=== PATIENT | female | born 1970 | race Caucasian/White ===

== ENCOUNTER 2016-11-16 12:15 | Emergency (ER) ==
[2016-11-16] MEDS ORDERED: TORADOL IM STA (12:26)
[2016-11-16 12:27] VITALS: BP 134/88; TEMP 97.1; BMI 46.1
--- NOTE | 2016-11-16 12:29 | ED.PDOC ---
General ED Provider: Dr. BRISEIDA LEÓN Chief Complaint: Foot Pain/Injury Stated Complaint: twisted injury to right foot, painful to walk. Time Seen by Physician: 12:27 Mode of Arrival: Wheelchair Information Source: Patient Primary Care Provider: STEFANIE NARAYANAN Nursing and Triage Documentation Reviewed and Agree: Yes Musculoskeletal Complaint Exam - Ankle/Foot Complaint/Exam Location of Injury: Reports: Right, Foot Mechanism of Injury: Reports: Trauma Symptoms Are: Reports: Still present Onset of Pain: Reports: Immediate Initial Severity: Moderate Current Severity: Severe Location: Reports: Discrete Character: Reports: Aching, Throbbing Alleviating: Reports: None Aggravating: Reports: Movement, Weight bearing Able to Bear Weight: No Associated Signs and Symptoms: Reports: Swelling. Denies: Redness, Bruising, Fever, Weakness, Numbness, Tingling Gout Risk Factors: Reports: None Related Surgical History: Reports: None Lower Extremity Findings: Present: Swelling, Tenderness. Absent: Ecchymosis, Abnormal contour, Rotation Tenderness: Present: Midfoot, Metatarsals Limited Range of Motion: Present: Inversion, Eversion Differential Diagnosis: Closed Fracture, Sprain Review of Systems - Review Of Systems Constitutional: Reports: No symptoms Eyes: Reports: No symptoms Ears, Nose, Mouth, Throat: Reports: No symptoms Respiratory: Reports: No symptoms Cardiac: Reports: No symptoms GI: Reports: No symptoms : Reports: No symptoms Musculoskeletal: Reports: Joint pain, Joint swelling Skin: Reports: No symptoms Neurological: Reports: No symptoms Endocrine: Reports: No symptoms Hematologic/Lymphatic: Reports: No symptoms All Other Systems: Reviewed and Negative Past Medical History - Past Medical History Previously Healthy: No Endocrine: Reports: None Cardiovascular: Reports: Hypertension Respiratory: Reports: None Hematological: Reports: None Gastrointestinal: Reports: None Genitourinary: Reports: None Neuro/Psych: Reports: Anxiety, Depression Musculoskeletal: Reports: Back Pain (buldging disk. ), Joint Pain Cancer: Reports: None Last Menstrual Period: none Other Pertinent Past Medical History: Obesity - Surgical History General Surgical History: Reports: Hysterectomy, , Appendectomy. Denies: Back Surgery - Family History Family History: Reports: Hypertension - Social History Smoking Status: Former smoker Hx Substance Use: Yes (ALCOHOL AND MARIJUANA IN PAST) Alcohol Screening: None - Immunizations Influenza Vaccine within 12 Months: No Pneumococcal Vaccine up to Date: No Physical Exam - Physical Exam Appearance: Well-appearing, Well-nourished, Obese Pain Distress: Moderate Eyes: MIKALA, EOMI, Conjunctiva clear ENT: Ears normal, Nose normal, Oropharynx normal Respiratory: Airway patent, Breath sounds clear, Breath sounds equal, Respirations nonlabored Cardiovascular: RRR, Pulses normal, No rub, No murmur GI/: Soft, Nontender, No masses, Bowel sounds normal, No Organomegaly Musculoskeletal: No edema, No calf tenderness, Limited ROM, Limited strength Skin: Warm, Dry, Normal color Neurological: Sensation intact, Motor intact, Reflexes intact, Cranial nerves intact, Alert, Oriented Psychiatric: Affect appropriate, Mood appropriate Interpretation - Radiology Interpretation Radiology Interpretation By: ED Physician Radiology Results: Negative Critical Care Note - Critical Care Note Total Time (mins): 0 Course - Course Orders, Labs, Meds: Orders Category Date Time Status Ketorolac Tromethamine [Toradol] MEDS 11/16/16 12:26 Discontinued 60 mg IM ONCE STA FOOT, RIGHT 3 VIEWS Stat RADS 11/16/16 12:26 Taken Medications Discontinued Medications Generic Name Dose Route Start Last Admin Trade Name Freq PRN Reason Stop Dose Admin Ketorolac Tromethamine 60 mg 11/16/16 12:26 11/16/16 12:36 Toradol IM 11/16/16 12:27 60 mg ONCE STA Administration Vital Signs: Temp Pulse Resp BP Pulse Ox 11/16/16 12:16 97.1 F L 86 18 134/88 94 L Departure - Departure Time of Disposition: 13:01 Disposition: HOME SELF-CARE Discharge Problem: Foot sprain Qualifiers: Encounter type: initial encounter Laterality: right Qualifier Code: (S93.601A) Unspecified sprain of right foot, initial encounter Instructions: Foot Sprain (ED) Condition: Stable Pt referred to PMD for follow-up: Yes Additional Instructions: rest hot or cold pack Prescriptions: Hydrocodone/Acetaminophen [[place] 5-325 Tablet] 1 tab PO TID PRN #12 tablet PRN Reason: PAIN Allergies/Adverse Reactions: Allergies aspirin Adverse Reaction (Verified 11/16/16 12:22) Penicillins Adverse Reaction (Verified 11/16/16 12:22) Home Medications: Ambulatory Orders Hydrocodone/Acetaminophen [[place] 5-325 Tablet] 1 tab PO TID PRN #12 tablet 11/16 Disposition Discussed With: Patient, Family
--- NOTE | 2016-11-16 16:18 | DI ---
EXAM:Three-view right foot COMPARISON: None HISTORY: Trauma and pain FINDINGS: There is no acute fracture or dislocation. Alignment is anatomic. Joint spaces are well preserved. There is a calcaneal Achilles spur. Soft tissues are unremarkable. No unexpected radio-o paque foreign bodies. IMPRESSION: No acute osseous abnormality.
== END 2016-11-16 13:16 | disposition home or self-care (01) ==
LOC: ED 12:15
DX: S93.601A Unspecified sprain of right foot, initial encounter (principal); X50.1XXA Overexertion from prolonged static or awkward postures, initial encounter
CPT/HCPCS: 96372; 99282

== ENCOUNTER 2016-11-19 11:29 | Outpatient (CLI) ==
--- NOTE | 2016-11-19 14:57 | MRI ---
EXAM: MRI right knee without contrast. HISTORY: Right knee pain. Torn meniscus removed. Low back pain.. TECHNIQUE: Using a local extremity coil on a high field strength magnet multiplanar multisequence m agnet resonance imaging performed of the right knee without intravenous or intra-articular gadoliniu m contrast. COMPARISON: Two-view plain film examination right knee 08/08/2009. FINDINGS: Within the medial compartment question partial meniscectomy change involving the posterio r horn and body medial meniscus. No discrete surfacing medial meniscal tear identified. The medial compartment cartilage relatively congruent without focal underlying subchondral edema. Within the lateral compartment lateral meniscus is intact without discrete surfacing meniscal tear. The lateral compartment cartilage congruent without underlying subchondral edema. Within the patellofemoral compartment the patella seated with intact patellar attachment of the medi al and lateral patellar retinaculum.. Large 14 mm area of chondrosis with cartilage ulceration over the median ridge extending over the lateral facet with underlying subchondral edema/cyst formation. The trochlear groove cartilage relatively congruent without underlying subchondral edema. Trace right knee effusion. No osteochondral loose bodies. Intact anterior and posterior cruciate l igament fibers. The extensor mechanism is intact. The medial collateral ligament as well as latera l collateral ligament complex and posterolateral corner intact.. IMPRESSION: Question partial meniscectomy change involving the posterior horn body medial meniscus. No discrete surfacing medial meniscal tear identified. 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 Trace right knee effusion. Intact cruciate and collateral ligaments. Recommendation is obtainment and correlation with recent plain film radiographs of the right knee to include tangential view as none are available for comparison at the time of this dictation.
--- NOTE | 2016-11-20 08:23 | MRI ---
EXAM: MRI lumbar spine without IV contrast. DATE: 19 November 2016. HISTORY: Low back pain. TECHNIQUE: Sagittal and axial T1W and T2W sequences of the lumbar spine along with sagittal IR and coronal T2W sequences were obtained using 1.5 Alejandra magnet. No IV contrast. COMPARISON: MRI L-spine [address] abdomen/pelvis 16 July 2015 FINDINGS: There are four classic [id number] lumbar vertebra (L2 through L5). At the thoracolu mbar junction, there is a transitional vertebra with either hypoplastic ribs or unusual articulation s of the transverse processes. For the purposes of this dictation and in keeping with previous dict ations, this transitional vertebra is referred to as L1. The alignment of the lumbar spine is normal. No acute fracture, subluxation, osseous malignancy, or pars interarticularis defect is identified. Lumbar vertebra are normal in height. Bone marrow sig nal is normal. T2W/T1W bright, 8 x 6.2 x 12 mm focus in the right side of the L1 body is likely a b enign hemangioma. Lumbar intervertebral discs are normal in height. No sacral fracture or stress r eaction is identified. SI joints are unremarkable. Conus medullaris terminates at L1-2. Visible s ricardo cord is normal. No retroperitoneal lymphadenopathy, paraspinal mass, or aortic aneurysm is detected. Paraspinal mus culature is symmetric bilaterally. Visible portions of the liver, spleen, right adrenal gland and k idneys reveal no malignancy. A 4.6 mm nodular focus at the medial limb left adrenal gland and 5.3 m m questionable nodule at the left adrenal jacquelin are seen on axial images. CBD is 6 mm diameter at th e pancreatic head level is within normal limits given the patients previous cholecystectomy. No def initive choledocholithiasis. A 4.4 x 6 mm questionable fold vs polyp vs prominent ampulla Vater is observed on the limited images through the C-loop duodenum. Segmental analysis: T12-L1: Normal. L1-2: Normal L2-3: Normal. L3-4: Normal. L4-5: Minor bilateral facet arthropathy and tiny effusions. No disc protrusion/bulge or central st enosis. L5-S1: Mild bilateral facet arthropathy causes minimal right and mild left foraminal encroachment. No disc protrusions/bulge or central canal stenosis. IMPRESSIONS: 1. L-spine minor DDD and mild facet disease. 2. No lumbar spine central canal stenosis. 3. Minimal right and mild left foraminal narrowing at L5-S1. 4. Left adrenal artifacts vs small lesions / adenomas. 5. C-loop duodenum artifact vs polyp vs prominent ampulla Vater. If symptoms warrant further evalu ation, upper GI examination or direct visualization could be considered.
== END 2016-11-19 11:30 | disposition home or self-care (01) ==
LOC: RAD 11:29
PROVIDERS: ATTEND Physician Assistant Medical
DX: M54.5 Low back pain (principal); M25.561 Pain in right knee

== ENCOUNTER 2016-12-30 19:45 | Emergency (ER) ==
[2016-12-30 19:49] VITALS: BP 136/90; TEMP 98.5; BMI 43.6
--- NOTE | 2016-12-30 20:24 | ED.PDOC ---
General ED Provider: Dr. YASH PITT-ER Chief Complaint: Foot Pain/Injury Stated Complaint: my foot hurts Time Seen by Physician: 19:50 Mode of Arrival: Wheelchair Information Source: Patient Exam Limitations: No limitations Primary Care Provider: STEFANIE NARAYANAN Nursing and Triage Documentation Reviewed and Agree: Yes Musculoskeletal Complaint Exam - Ankle/Foot Complaint/Exam Location of Injury: Reports: Left, Foot Mechanism of Injury: Reports: No known trauma Onset/Duration: 3 hrs Symptoms Are: Reports: Still present Onset of Pain: Reports: Immediate Initial Severity: Mild Current Severity: Mild Location: Reports: Discrete Character: Reports: Throbbing, Stiffness Alleviating: Reports: None Aggravating: Reports: Movement, Weight bearing, Prolonged standing Able to Bear Weight: No Associated Signs and Symptoms: Denies: Swelling, Redness, Bruising, Fever, Weakness, Numbness, Tingling Gout Risk Factors: Reports: >40 years old Lower Extremity Findings: Present: Tenderness Achilles Tendon Abnormality: No Tenderness: Present: Midfoot Limited Range of Motion: Present: Inversion, Eversion Differential Diagnosis: Closed Fracture, Sprain, Strain Review of Systems - Review Of Systems Constitutional: Reports: No symptoms Eyes: Reports: No symptoms Ears, Nose, Mouth, Throat: Reports: No symptoms Respiratory: Reports: No symptoms Cardiac: Reports: No symptoms GI: Reports: No symptoms : Reports: No symptoms Musculoskeletal: Reports: Joint pain, Muscle pain Skin: Reports: No symptoms Neurological: Reports: No symptoms Endocrine: Reports: No symptoms Hematologic/Lymphatic: Reports: No symptoms All Other Systems: Reviewed and Negative Past Medical History - Past Medical History Previously Healthy: No Endocrine: Reports: None Cardiovascular: Reports: Hypertension Respiratory: Reports: None Hematological: Reports: None Gastrointestinal: Reports: None Genitourinary: Reports: None Neuro/Psych: Reports: Anxiety, Depression Musculoskeletal: Reports: Back Pain (buldging disk. ), Joint Pain Cancer: Reports: None Last Menstrual Period: none Other Pertinent Past Medical History: Obesity - Surgical History General Surgical History: Reports: Hysterectomy, , Appendectomy. Denies: Back Surgery - Family History Family History: Reports: Hypertension - Social History Smoking Status: Former smoker Hx Substance Use: Yes (ALCOHOL AND MARIJUANA IN PAST) Alcohol Screening: None Lives: With family - Immunizations Influenza Vaccine within 12 Months: No Pneumococcal Vaccine up to Date: No Physical Exam - Physical Exam Appearance: Well-appearing, No pain distress, Well-nourished Pain Distress: Mild Eyes: MIKALA ENT: Ears normal, Nose normal, Oropharynx normal Neck: Supple Respiratory: Airway patent Cardiovascular: RRR GI/: Soft, Nontender, No masses, Bowel sounds normal, No Organomegaly Musculoskeletal: Limited ROM Skin: Warm Neurological: Sensation intact Psychiatric: Affect appropriate, Mood appropriate Interpretation - Radiology Interpretation Radiology Interpretation By: Radiologist Radiology Results: Negative Exam Interpreted: CT Scan Critical Care Note - Critical Care Note Total Time (mins): 0 Course - Course Orders, Labs, Meds: Orders Category Date Time Status CRUTCHES [ED CRUTCHES] .ONCE EMERGENCY 12/30/16 20:40 Ordered ED ALEXIA WRAP .ONCE EMERGENCY 12/30/16 20:40 Ordered ED SPLINT APPLICATION .ONCE EMERGENCY 12/30/16 20:40 Ordered Hydrocodone Bit/Acetaminophen [[place] 5-325] MEDS 12/30/16 20:40 Stat 1 tab PO ONCE STA CT FOOT LEFT WITHOUT CONTRAST Stat RADS 12/30/16 19:53 Completed Vital Signs: Temp Pulse Resp BP Pulse Ox 12/30/16 19:45 98.5 F 92 H 20 136/90 98 Departure - Departure Time of Disposition: 20:41 Disposition: HOME SELF-CARE Discharge Problem: Foot pain, left Instructions: Foot Fracture in Adults (ED) Condition: Good Pt referred to PMD for follow-up: Yes Additional Instructions: noweightbearing--use crutches --norco 5mg q 6hrs prn pain #15--f/u with pcp and consider referral to ortho Allergies/Adverse Reactions: Allergies aspirin Adverse Reaction (Verified 12/30/16 19:49) Penicillins Adverse Reaction (Verified 12/30/16 19:49) Home Medications: Ambulatory Orders Hydrochlorothiazide 25 mg PO DAILY 12/30/16 Phentermine HCl 37.5 mg PO DAILY 12/30/16 Disposition Discussed With: Patient
--- NOTE | 2016-12-30 20:37 | CT ---
Exam: CT left foot without contrast. Clinical indication: Left foot pain with history of osteochondral lesion. TECHNIQUE: Axial unenhanced CT images through the left foot were obtained followed by coronal and s agittal reformats. There are no prior studies available for comparison. Findings: The visualized portions of the distal left tibia and fibula are intact. There is no left ankle effusion. On the medial corner of the left talar dome there are multiple subchondral cystic changes consistent with a prior osteochondral defect. The remainder of the talus is intact. The calcaneus is intact. The subtalar joints are unremarkable. The navicular, cuboid, and cuneiform bones are intact. The metatarsals are intact. The bones of th e toes are intact. The joints of the foot are unremarkable other than the osteochondral defect mentioned above. The soft tissues are unremarkable. Impression: 1. Multiple small subchondral cysts on the medial corner of the left talar dome, consistent with a prior osteochondral defect. 2. Otherwise unremarkable CT of the left foot.
[2016-12-30] MEDS ORDERED: NORCO 5-325 PO STA (20:40)
== END 2016-12-30 20:54 | disposition home or self-care (01) ==
LOC: ED 19:45
DX: M79.672 Pain in left foot (principal)
CPT/HCPCS: 99282

== ENCOUNTER 2017-02-09 11:33 | Inpatient (IN) ==
[2017-02-09 11:37] VITALS: BMI 41.0
--- NOTE | 2017-02-09 12:04 | ED.PDOC ---
General ED Provider: Dr. SANTO ROBLEDO JR Chief Complaint: Chest Pain Stated Complaint: pain left chest began Thursday during services at [facility] comes and goes began at left ant chest and rediated down left arm with numbness to arm nausea light headed called PMD today; through to her back and down left arm nothing better or worse. took antacids burping yesterday. denies shortness of breath but nausea ]6 years ago similar pain negative cardiac workup thursday had an mri done with dye[End]follow up of back MRI, saw Dr Urbina Time Seen by Physician: 12:03 Mode of Arrival: Walk-In Information Source: Patient Exam Limitations: No limitations Primary Care Provider: STEFANIE NARAYANAN Nursing and Triage Documentation Reviewed and Agree: No Review of Systems - Review Of Systems Constitutional: Reports: Malaise Eyes: Reports: No symptoms Ears, Nose, Mouth, Throat: Reports: No symptoms Respiratory: Reports: No symptoms Cardiac: Reports: No symptoms GI: Reports: Nausea : Reports: No symptoms Musculoskeletal: Reports: Muscle pain (ant chest and lateral left upper arm) Skin: Reports: No symptoms Neurological: Reports: No symptoms Endocrine: Reports: No symptoms Hematologic/Lymphatic: Reports: Other All Other Systems: Other Past Medical History - Past Medical History Previously Healthy: No Endocrine: Reports: None Cardiovascular: Reports: Hypertension Respiratory: Reports: None Hematological: Reports: None Gastrointestinal: Reports: None, Pancreatitis (?) Genitourinary: Reports: None Neuro/Psych: Reports: Anxiety, Depression Musculoskeletal: Reports: Back Pain (buldging disk. ), Joint Pain Cancer: Reports: None Last Menstrual Period: n/a Other Pertinent Past Medical History: Obesity - Surgical History General Surgical History: Reports: Hysterectomy, , Appendectomy, Cholecystectomy (note recent MRI shows small stone or polyp in bile duct(MRI of back showed adrenal left nodules and polyp in ampula vater). Denies: Back Surgery - Family History Family History: Reports: Heart (father in his 60s past hx cabg diabetes copd; MGF with CHF ), Hypertension (mother with HT and angina), Cancer - Social History Smoking Status: Former smoker (quit 3 years ago) Hx Substance Use: Yes (ALCOHOL AND MARIJUANA IN PAST) Alcohol Screening: None - Immunizations Influenza Vaccine within 12 Months: No Pneumococcal Vaccine up to Date: No Physical Exam - Physical Exam Appearance: Well-appearing, Obese Pain Distress: Moderate Eyes: MIKALA, EOMI, Conjunctiva clear ENT: Ears normal (note excess cerumen), Nose normal, Oropharynx normal Neck: Supple Respiratory: Airway patent, Breath sounds clear, Breath sounds equal, Respirations nonlabored Cardiovascular: RRR, Pulses normal, No rub, No murmur (tender ant chest over left pectoral muscle and left posterior upper arm) GI/: Soft, Nontender, No masses, Bowel sounds normal, No Organomegaly Musculoskeletal: Normal strength, ROM intact, No edema, No calf tenderness ( tender left pectoral and left upper arm) Skin: Warm, Dry, Normal color Neurological: Sensation intact, Motor intact, Reflexes intact, Cranial nerves intact, Alert, Oriented Psychiatric: Affect appropriate, Mood appropriate Interpretation - Radiology Interpretation Radiology Interpretation By: Radiologist Radiology Results: Negative Exam Interpreted: CXR - EKG Interpretation Time of EKG #1: 12:14 Rate: Normal Rhythm: Sinus ST Segment: Normal Re-Evaluation - Re-Evaluation Time of Re-Evaluation: 12:13 (MRI 29march nodules left adrenal gland &?mass ampulla vater) Critical Care Note - Critical Care Note Total Time (mins): 10 Course - Course Hematology/Chemistry: 02/09/17 12:00 02/09/17 12:00 Orders, Labs, Meds: Lab Review 02/09/17 12:00 WBC 5.81 RBC 4.74 Hgb 13.4 Hct 41.0 MCV 86.5 MCH 28.3 MCHC 32.7 RDW Coeff of Cuauhtemoc 12.9 Plt Count 231 Immature Gran % (Auto) 0.3 Neut % (Auto) 53.8 Lymph % (Auto) 34.4 Hardin % (Auto) 7.2 Eos % (Auto) 3.8 Baso % (Auto) 0.5 Immature Gran # (Auto) 0.0 Neut # 3.1 Lymph # 2.0 Hardin # 0.4 Eos # 0.2 Baso # 0.0 D-Dimer (Manual) 355.80 Sodium 142 Potassium 3.9 Chloride 102 Carbon Dioxide 30 Anion Gap 13.9 BUN 9 Creatinine 0.80 Estimated GFR (MDRD) 78.00 BUN/Creatinine Ratio 11.25 Glucose 94 Calcium 9.7 Total Bilirubin 0.42 AST 19 ALT 18 Alkaline Phosphatase 68 Total Creatine Kinase 53 Troponin I < 0.0100 B-Natriuretic Peptide < 10 Total Protein 7.1 Albumin 3.8 Globulin 3.3 Albumin/Globulin Ratio 1.15 Triglycerides 75 Cholesterol 133 LDL Cholesterol, Calc 67 VLDL Cholesterol 15 HDL Cholesterol 51 Cholesterol/HDL Ratio 2.6 L TSH 1.058 Free T4 1.04 Orders Category Date Time Status PLACE PATIENT OBSERVATION .TO [facility] (MONITORED BED ADMISSION 02/09/17 13: 41 Active ) ECHOCARDIOGRAM 2D-M MODE Routine CARDIO 02/09/17 13:39 Ordered EKG-(ED ONLY) Stat CARDIO 02/09/17 11:53 Completed EKG-(IP & OP ONLY) DAILY CARDIO 02/10/17 06:00 Ordered EKG-(IP & OP ONLY) DAILY CARDIO 02/11/17 06:00 Ordered EKG-(IP & OP ONLY) DAILY CARDIO 02/12/17 06:00 Ordered STRESS ECHO Routine CARDIO 02/09/17 13:39 Ordered ACTIVITY .Early Mobilization for VTE Prevention CARE 02/09/17 13:43 Completed INTAKE & OUTPUT Q8HR CARE 02/09/17 13:41 Active INTAKE & OUTPUT Q8HR CARE 02/09/17 13:43 Completed NPO REMINDER: LAB TEST ONCE CARE 02/09/17 13:35 Active TELEMETRY MONITORING TELE CARE 02/09/17 13:42 Active VITAL SIGNS Q4HR CARE 02/09/17 13:43 Completed CARDIAC DIET DIETARY 02/09/17 Dinner Ordered B-TYPE NATRIURETIC PEPTIDE Stat LAB 02/09/17 12:00 Completed CBC W/ AUTO DIFF DAILY@0600 LAB 02/10/17 06:00 Ordered CBC W/ AUTO DIFF DAILY@0600 LAB 02/11/17 06:00 Ordered CBC W/ AUTO DIFF DAILY@0600 LAB 02/12/17 06:00 Ordered CBC W/ AUTO DIFF DAILY@0600 LAB 02/13/17 06:00 Ordered CBC W/ AUTO DIFF DAILY@0600 LAB 02/14/17 06:00 Ordered CBC W/ AUTO DIFF DAILY@0600 LAB 02/15/17 06:00 Ordered CBC W/ AUTO DIFF DAILY@0600 LAB 02/16/17 06:00 Ordered CBC W/ AUTO DIFF DAILY@0600 LAB 02/17/17 06:00 Ordered CBC W/ AUTO DIFF DAILY@0600 LAB 02/18/17 06:00 Ordered CBC W/ AUTO DIFF DAILY@0600 LAB 02/19/17 06:00 Ordered CBC W/ AUTO DIFF DAILY@0600 LAB 02/20/17 06:00 Ordered CBC W/ AUTO DIFF DAILY@0600 LAB 02/21/17 06:00 Ordered CBC W/ AUTO DIFF DAILY@0600 LAB 02/22/17 06:00 Ordered CBC W/ AUTO DIFF DAILY@0600 LAB 02/23/17 06:00 Ordered CBC W/ AUTO DIFF DAILY@0600 LAB 02/24/17 06:00 Ordered CBC W/ AUTO DIFF DAILY@0600 LAB 02/25/17 06:00 Ordered CBC W/ AUTO DIFF DAILY@0600 LAB 02/26/17 06:00 Ordered CBC W/ AUTO DIFF DAILY@0600 LAB 02/27/17 06:00 Ordered CBC W/ AUTO DIFF DAILY@0600 LAB 02/28/17 06:00 Ordered CBC W/ AUTO DIFF DAILY@0600 LAB 03/01/17 06:00 Ordered CBC W/ AUTO DIFF Stat LAB 02/09/17 12:00 Completed COMPREHENSIVE METABOLIC PANEL DAILY@0600 LAB 02/10/17 06:00 Ordered COMPREHENSIVE METABOLIC PANEL DAILY@0600 LAB 02/11/17 06:00 Ordered COMPREHENSIVE METABOLIC PANEL DAILY@0600 LAB 02/12/17 06:00 Ordered COMPREHENSIVE METABOLIC PANEL DAILY@0600 LAB 02/13/17 06:00 Ordered COMPREHENSIVE METABOLIC PANEL DAILY@0600 LAB 02/14/17 06:00 Ordered COMPREHENSIVE METABOLIC PANEL DAILY@0600 LAB 02/15/17 06:00 Ordered COMPREHENSIVE METABOLIC PANEL DAILY@0600 LAB 02/16/17 06:00 Ordered COMPREHENSIVE METABOLIC PANEL DAILY@0600 LAB 02/17/17 06:00 Ordered COMPREHENSIVE METABOLIC PANEL DAILY@0600 LAB 02/18/17 06:00 Ordered COMPREHENSIVE METABOLIC PANEL DAILY@0600 LAB 02/19/17 06:00 Ordered COMPREHENSIVE METABOLIC PANEL DAILY@0600 LAB 02/20/17 06:00 Ordered COMPREHENSIVE METABOLIC PANEL DAILY@0600 LAB 02/21/17 06:00 Ordered COMPREHENSIVE METABOLIC PANEL DAILY@0600 LAB 02/22/17 06:00 Ordered COMPREHENSIVE METABOLIC PANEL DAILY@0600 LAB 02/23/17 06:00 Ordered COMPREHENSIVE METABOLIC PANEL DAILY@0600 LAB 02/24/17 06:00 Ordered COMPREHENSIVE METABOLIC PANEL DAILY@0600 LAB 02/25/17 06:00 Ordered COMPREHENSIVE METABOLIC PANEL DAILY@0600 LAB 02/26/17 06:00 Ordered COMPREHENSIVE METABOLIC PANEL DAILY@0600 LAB 02/27/17 06:00 Ordered COMPREHENSIVE METABOLIC PANEL DAILY@0600 LAB 02/28/17 06:00 Ordered COMPREHENSIVE METABOLIC PANEL DAILY@0600 LAB 03/01/17 06:00 Ordered COMPREHENSIVE METABOLIC PANEL Stat LAB 02/09/17 12:00 Completed CREATINE KINASE Q8H LAB 02/09/17 19:45 Ordered CREATINE KINASE Q8H LAB 02/10/17 03:45 Ordered CREATINE KINASE Stat LAB 02/09/17 12:00 Completed D-DIMER Stat LAB 02/09/17 12:00 Completed FREE T4 (FREE THYROXINE) Routine LAB 02/09/17 12:00 Completed LIPID PANEL Routine LAB 02/09/17 12:00 Completed THYROID STIMULATING HORMONE Routine LAB 02/09/17 12:00 Completed TROPONIN I Q8H LAB 02/09/17 19:45 Ordered TROPONIN I Q8H LAB 02/10/17 03:45 Ordered TROPONIN I Stat LAB 02/09/17 12:00 Completed Hydrochlorothiazide [Hydrochlorothiazide] MEDS 02/10/17 09:00 Active 25 mg PO DAILY Sucralfate [Carafate] MEDS 02/09/17 17:00 Active 1 gm PO ACHS RESUSCITATION STATUS Routine OTHERS 02/09/17 13:41 Ordered CHEST, 1V AP ONLY Stat RADS 02/09/17 11:53 Completed Medications Generic Name Dose Route Start Last Admin Trade Name Freq PRN Reason Stop Dose Admin Dexamethasone Sodium Phosphate 4 mg 02/09/17 16:18 Decadron 4 Mg/Ml Sdv IM 02/09/17 16:19 ONCE STA Ketorolac Tromethamine 30 mg 02/09/17 16:19 Toradol IVP 02/09/17 16:20 ONCE STA Non-Formulary Medication 25 mg 02/10/17 09:00 Hydrochlorothiazide [Hydrochlorothiazide] PO DAILY JESSE Non-Formulary Medication 1 gm 02/09/17 17:00 Sucralfate [Carafate] PO ACHS JESSE Vital Signs: Temp Pulse Resp BP Pulse Ox 02/09/17 11:34 96.3 F L 82 16 133/86 97 ANSHU Risk Score ANSHU Risk Score: Risk Score Odds of by 30D 0 0.1 (0.1-0.2) 1 0.3 (0.2-0.3) 2 0.4 (0.3-0.5) 3 0.7 (0.6-0.9) 4 1.2 (1.0-1.5) 5 2.2 (1.9-2.6) 6 3.0 (2.5-3.6) 7 4.8 (3.8-6.1) Departure - Departure Time of Disposition: 14:00 Disposition: PLACED OBSERVATION Discharge Problem: Chest pain Condition: Good Pt referred to PMD for follow-up: No (hospitalist) Allergies/Adverse Reactions: Allergies aspirin Adverse Reaction (Verified 02/09/17 11:37) Penicillins Adverse Reaction (Verified 02/09/17 11:37) Home Medications: Ambulatory Orders Hydrochlorothiazide 25 mg PO DAILY 12/30/16 Phentermine HCl 37.5 mg PO DAILY 12/30/16 Sucralfate [Carafate] 1 gm PO ACHS 02/09/17
[2017-02-09 12:08] LABS: BASOPHILS % (AUTO) 0.5 % (0.0-3.0); EOSINOPHILS # (AUTO) 0.2 K/ul (0.0-0.7); EOSINOPHILS % (AUTO) 3.8 % (0.0-7.0); HEMOGLOBIN 13.4 g/dl (12.0-16.0); IMMATURE GRANULOCYTE % (AUTO) 0.3 % (0.0-5.0); LYMPHOCYTES % (AUTO) 34.4 (10.0-50.0); MEAN CORPUSCULAR HEMOGLOBIN 28.3 pg (27.0-31.0); MEAN CORPUSCULAR HGB CONC 32.7 (31.8-35.4); MEAN CORPUSCULAR VOLUME 86.5 fl (81.0-99.0); MONOCYTES # (AUTO) 0.4 K/uL (0.4-2.0); MONOCYTES % (AUTO) 7.2 (0-10); NEUTROPHILS # (AUTO) 3.1 K/ul (2.0-6.9); NEUTROPHILS % (AUTO) 53.8; PLATELET COUNT 231 10^3/uL (140-440); RED BLOOD COUNT 4.74 10^6/ul (4.20-5.40); WHITE BLOOD COUNT 5.81 K/ul (4.6-10.2)
--- NOTE | 2017-02-09 12:30 | DI ---
EXAM: Chest one view. CLINICAL INDICATION: Chest pain. COMPARISON: 04/15/2016. FINDINGS: A single AP radiograph of the thorax is provided. The pulmonary parenchyma is clear and there is no pleural abnormality. The cardiomediastinal silhou ette and visualized bony structures are unremarkable. IMPRESSION: Negative chest x-ray.
[2017-02-09 12:34] LABS: ALANINE AMINOTRANSFERASE 18 U/L (12-78); ALBUMIN 3.8 g/dL (3.4-5.0); ALBUMIN/GLOBULIN RATIO 1.15; ALKALINE PHOSPHATASE 68 U/L (42-98); ANION GAP 13.9; ASPARTATE AMINO TRANSFERASE 19 U/L (15-37); BILIRUBIN,TOTAL 0.42 mg/dL (0.00-1.20); BLOOD UREA NITROGEN 9 mg/dL (7-18); BUN/CREATININE RATIO 11.25; CALCIUM 9.7 mg/dL (8.2-10.2); CARBON DIOXIDE 30 mmol/L (21-32); CHLORIDE 102 mmol/L (98-107); CREATINE KINASE 53 U/L; GLUCOSE 94 mg/dL (70-110); POTASSIUM 3.9 mmol/L (3.5-5.10); SODIUM 142 mmol/L (136-145); TOTAL PROTEIN 7.1 g/dL (6.4-8.2)
[2017-02-09 14:26] LABS: CHOL/HDL RATIO 2.6 (4.5-5.5)
[2017-02-09] MEDS ORDERED: TORADOL IM STA (16:17)
[2017-02-09] MEDS ORDERED: DECADRON 4 MG/ML SDV IM STA (16:18)
[2017-02-09] MEDS ORDERED: TORADOL IVP STA (16:19)
[2017-02-09] MEDS ORDERED: PROTONIX ONE (16:41)
[2017-02-09] MEDS ORDERED: CARAFATE ONE ×2 (16:41→20:04)
[2017-02-09] MEDS: PROTONIX PO SCH (16:58)
[2017-02-09] MEDS: NON-FORMULARY MEDICATION (Sucralfate [Carafate] 1 GM) PO SCH ×2 (16:59→20:29)
[2017-02-09 20:01] LABS: CREATINE KINASE 52 U/L
[2017-02-10 04:22] LABS: BASOPHILS % (AUTO) 0.4 % (0.0-3.0); HEMATOCRIT 39.2 % (37.0-47.0); HEMOGLOBIN 13.1 g/dl (12.0-16.0); IMMATURE GRANULOCYTE % (AUTO) 0.4 % (0.0-5.0); LYMPHOCYTES # (AUTO) 0.9 K/uL (0.60-3.4); LYMPHOCYTES % (AUTO) 16.3 (10.0-50.0); MEAN CORPUSCULAR HEMOGLOBIN 28.4 pg (27.0-31.0); MEAN CORPUSCULAR HGB CONC 33.4 (31.8-35.4); MONOCYTES # (AUTO) 0.1 K/uL (0.4-2.0); MONOCYTES % (AUTO) 1.9 (0-10); NEUTROPHILS # (AUTO) 4.2 K/ul (2.0-6.9); PLATELET COUNT 249 10^3/uL (140-440); RED BLOOD COUNT 4.61 10^6/ul (4.20-5.40); WHITE BLOOD COUNT 5.21 K/ul (4.6-10.2)
[2017-02-10] MEDS ORDERED: CARAFATE ONE (04:40)
[2017-02-10 04:48] LABS: ALBUMIN 3.7 g/dL (3.4-5.0); ALBUMIN/GLOBULIN RATIO 1.12; ANION GAP 12.9; BILIRUBIN,TOTAL 0.36 mg/dL (0.00-1.20); CALCIUM 9.6 mg/dL (8.2-10.2); CREATININE 0.75 mg/dL (0.60-1.30); POTASSIUM 3.9 mmol/L (3.5-5.10)
[2017-02-10 04:52] LABS: TROPONIN I 0.024 ng/ml (0.0000-0.4000)
[2017-02-10] MEDS: PROTONIX PO SCH ×2 (05:34→17:01)
[2017-02-10] MEDS: NON-FORMULARY MEDICATION (Sucralfate [Carafate] 1 GM) PO SCH (05:35)
[2017-02-10] MEDS: HYDROCHLOROTHIAZIDE PO SCH (08:19)
[2017-02-10] MEDS ORDERED: NON-FORMULARY MEDICATION (Hydrochlorothiazide [Hydrochlorothiazide] 25 MG) PO SCH ×22 (09:00)
--- NOTE | 2017-02-10 09:47 | PCM.PROG ---
Attending Provider: ATTENDING PROVIDER[facility] DATE OF SERVICE: 02/10/17 SUBJECTIVE: This 46 year old PATIENT DECLINED TO PROVIDE F was hospitalized 02/09/17. The patient is seen with Teresa, Nurse Practitioner. The patient is admitted through the ER with chest pain. The patient had an echo and stress echocardiogram today with no chest pain this morning. The patient had chest pain last night - epigastric radiating to left. The patient is up and about in the chair and is alert and oriented today. REVIEW OF SYSTEMS: CONSTITUTIONAL: No night sweats. No fatigue, malaise, lethargy. No fever or chills. HEENT: Eyes: No visual changes. No eye pain. No eye discharge. ENT: No runny nose. No epistaxis. No sinus pain. No odynophagia. No congestion. RESPIRATORY: No cough, no congestion. No hemoptysis. CARDIOVASCULAR: No angina symptoms. No CHF symptoms. No atypical chest pain for CAD. No palpitations. No shortness of breath. GASTROINTESTINAL: No abdominal pain. No nausea or vomiting. No diarrhea or constipation. No hematemesis. No hematochezia. GENITOURINARY: No urgency. No frequency. No dysuria. No hematuria. No obstructive symptoms. No discharge. No pain. No significant abnormal bleeding. MUSCULOSKELETAL: No musculoskeletal pain; no joint swelling. NEUROLOGICAL: Awake, alert, oriented to time, place and person. No headache. No neck pain. No syncope. No seizures. No dizziness. PSYCHIATRIC: Not anxious. No depression. No suicidal thoughts. No homicidal thoughts. SKIN: No rash. No lesions. No wounds. ENDOCRINE: No unexplained weight loss. No weight gain. HEMATOLOGIC/LYMPHATIC: No anemia. No purpura. No petechiae. No prolonged or excessive bleeding. No palpable lymph nodes. PHYSICAL EXAMINATION: GENERAL: The patient is awake, alert and oriented, sitting in chair in no distress. VITAL SIGNS: Temperature 97.4 F, Pulse 67, Respiratory Rate 19, BP 102/71, Pulse Ox 97% HEENT: Head normocephalic, atraumatic. Eyes: Extraocular muscles are intact. Pupils are equal, round and reactive to light and accommodation. Ears: No lesions. Nose appeared normal. Throat: No exudate or erythema. NECK: Supple. No JVD, no carotid bruit. No lymphadenopathy or thyromegaly. LUNGS: Clear to auscultation. Percussion note normal. Chest symmetrical. HEART: S1, S2, no S3. No murmurs. No cyanosis or clubbing. No ascites. Pulses: Dorsalis pedis and posterior tibial pulses +1 to +2 both sides. ABDOMEN: Soft. Non-tender. Bowel sounds active. No CVA tenderness. No mass felt. EXTREMITIES: No edema. Full range of motion of all extremities, equal. NEUROLOGIC: No focal deficit. Cranial nerves II through XII are grossly intact. No headache, no double vision or headache. SKIN: Not dry. Intact. Turgor-normal. LYMPHATIC: No palpable lymph nodes/no lymphedema. MUSCULOSKELETAL: Normal joints with no swelling. Muscle tone is normal. LAB REVIEW: 02/10/17 03:55 02/10/17 03:55 02/10/17 03:55: WBC 5.21, RBC 4.61, Hgb 13.1, Hct 39.2, MCV 85.0, MCH 28.4, MCHC 33.4, RDW Coeff of Cuauhtemoc 12.7, Plt Count 249, Immature Gran % (Auto) 0.4, Neut % (Auto) 81.0, Lymph % (Auto) 16.3, Hooker % (Auto) 1.9, Eos % (Auto) 0.0, Baso % (Auto) 0.4, Immature Gran # (Auto) 0.0, Neut # 4.2, Lymph # 0.9, Hooker # 0.1 L, Eos # 0.0, Baso # 0.0, Sodium 140, Potassium 3.9, Chloride 104, Carbon Dioxide 27, Anion Gap 12.9, BUN 12, Creatinine 0.75, Estimated GFR (MDRD) 84.00 , BUN/Creatinine Ratio 16.00, Glucose 158 H D, Calcium 9.6, Total Bilirubin 0.36 , AST 16, ALT 17, Alkaline Phosphatase 66, Total Creatine Kinase 46, Troponin I 0.0240, Total Protein 7.0, Albumin 3.7, Globulin 3.3, Albumin/Globulin Ratio 1.12 02/09/17 19:30: Total Creatine Kinase 52, Troponin I < 0.0100 ASSESSMENT: 1. Chest pain 2. GERD 3. Anxiety 4. Depression PLAN: 1. Continue Protonix and Carafate. 2. Echocardiogram and stress echo today. 3. Anticipate endoscopy and colonoscopy 02/13 in [place], [place]. Plan and coordination of the patient's care discussed in the presence of Patient Registration Specialist and nurse. CONDITION: Stable SCRIBED BY: MONAE DOMINGUEZ Furnace Operator And Tender scribed while in presence of service performed by Dr. NATALIE HILL-[facility]/TERESA CABALLERO APRN on 02/10/17 (0800)
--- NOTE | 2017-02-10 10:08 | STRESS ---
Date of Test: 02/10/17 Reason for Exam: CHEST PAIN Ordering Physician: HOSPITALIST--NATALIE HILL Current Medications: HCTZ,, CARAFATE, PHENTERMINE (ON HOLD) Physical Findings: S1, S2, NO S3 Resting EKG: SINUS RHYTHM/NO ACUTE CHANGES Target Heart Rate: 149/176 STAGE MPH/GRADE HEART RATE BPM BLOOD PRESSURE mmhg RHYTHM S-T SEGMENT UP DOWN SYMPTOMS,COMMENTS At Rest 75 110/78 SR X NONE 1 1.7/10% 160 140/60 SR X NONE 2 2.5/12% 3 3.4/14% 4 4.2/16% 5 5.0/18% Immediately After 175 SR X NONE Total Time: 4:03 Maximum Heart Rate Reached: 175 Reason for Termination: FATIGUE 1 MIN POST EXERCISE: HR 153 BPM, BP 130/80 MMHG 3 MIN POST EXERCISE: HR 106 BPM, BP 110/80 MMHG, SR, +/-, NONE INTERPRETATION: 97% OXYGEN SATURATION WITH EXERCISE ON ROOM AIR 1. NO EVIDENCE OF ISCHEMIA BY ST-T WAVE CHANGES 2. NO CHEST PAIN OR CHEST DISCOMFORT 3. BLOOD PRESSURE RESPONSE: NORMAL 4. NO ARRHYTHMIAS NORMAL LEFT VENTRICULAR CONTRACTILITY--RESTING AND POST EXERCISE MTDD
--- NOTE | 2017-02-10 10:51 | ECHOSTRESS ---
Date of Exam: 02/10/17 Ordering Physician: HOSPITALIST--NATALIE HILL Reason for Echo: CHEST PAIN, STRESS TEST--NO ISCHEMIA M-Mode Normal Adult Results LV Dimensions Normal Adult Results AoV Opening excursions >1.6 LVEDD-base- 3.5-5.8 Ao root dimensions 2.0-3.7 LVESD-base- 3.1-4.6 L. Atrium dimensions 1.9-3.8 Post. Wall thickness 0.8-1.1 IV septum (thickness) 0.7-1.2 Post. Wall excursion 0.72-1.3 Septal motion Systolic motion R. Ventricular cavity 1.5-2.0 LVEF 60% Paradoxical septal wall motion 2-D: NORMAL LEFT VENTRICULAR CONTRACTILITY--RESTING AND POST EXERCISE M-MODE: MV: AV: TV: PV: CHAMBER SIZE: WALL MOTION: NORMAL LEFT VENTRICULAR CONTRACTILITY--RESTING AND POST EXERCISE PERICARDIUM: INTERPRETATION: 1. NORMAL LEFT VENTRICULAR CONTRACTILITY--RESTING AND POST EXERCISE MTDD
[2017-02-10] MEDS: CARAFATE PO SCH ×3 (11:50→20:25)
--- NOTE | 2017-02-10 14:03 | ECHOSTRESS ---
Date of Exam: [] Ordering Physician: [] Reason for Echo: [] Auscultation: [] Murmurs: [] M-Mode Normal Adult Results LV Dimensions Normal Adult Results AoV Opening excursions >1.6 [] LVEDD-base- 3.5-5.8 [] Ao root dimensions 2.0-3.7 [] LVESD-base- 3.1-4.6 [] L. Atrium dimensions 1.9-3.8 [] Post. Wall thickness 0.8-1.1 [] IV septum (thickness) 0.7-1.2 [] Post. Wall excursion 0.72-1.3 [] Septal motion [] Systolic motion R. Ventricular cavity 1.5-2.0 [] LVEF 60% [] Paradoxical septal wall motion [] 2-D: [] M-MODE: MV: [] AV: [] TV: [] PV: [] CHAMBER SIZE: [] WALL MOTION: [] PERICARDIUM: [] INTERPRETATION: 1. [] MTDD
--- NOTE | 2017-02-10 14:17 | ECHO2D ---
Date of Exam: 02/10/17 Ordering Physician: HOSPITALIST--NATALIE HILL Reason for Echo: CHEST PAIN M-Mode Normal Adult Results LV Dimensions Normal Adult Results AoV Opening excursions >1.6 >1.6 LVEDD-base- 3.5-5.8 5.0 Ao root dimensions 2.0-3.7 3.1 LVESD-base- 3.1-4.6 L. Atrium dimensions 1.9-3.8 3.9 Post. Wall thickness 0.8-1.1 1.2 IV septum (thickness) 0.7-1.2 1.2 Post. Wall excursion 0.72-1.3 NORMAL Septal motion NORMAL Systolic motion R. Ventricular cavity 1.5-2.0 NORMAL LVEF 60% 53% Paradoxical septal wall motion NORMAL 2-D : 2-D M Mode Echocardiogram was performed using apical four chamber and left parasternal long and short axis views. Mitral, tricuspid and aortic valves appear to be normal. Contractility of the left ventricle seems to be normal, so is the cavity size. Left atrial cavity size and aortic root appear to be normal. There is no pericardial effusion. There is no thrombus noted in the left ventricular or left aortic cavity. No mitral valve prolapse noted. M-MODE: MV: NORMAL AV: NORMAL TV: NORMAL PV: CHAMBER SIZE: NORMAL WALL MOTION: NORMAL PERICARDIUM: NORMAL INTERPRETATION: 1. BORDERLINE LEFT VENTRICULAR HYPERTROPHY 2. NORMAL LEFT VENTRICULAR CONTRACTILITY 3. NORMAL VALVES MTDD
[2017-02-11 04:43] LABS: BASOPHILS % (AUTO) 0.5 % (0.0-3.0); EOSINOPHILS # (AUTO) 0.1 K/ul (0.0-0.7); EOSINOPHILS % (AUTO) 1.4 % (0.0-7.0); HEMOGLOBIN 12.6 g/dl (12.0-16.0); IMMATURE GRANULOCYTE % (AUTO) 0.3 % (0.0-5.0); LYMPHOCYTES # (AUTO) 3.6 K/uL (0.60-3.4); MEAN CORPUSCULAR HEMOGLOBIN 28.5 pg (27.0-31.0); MEAN CORPUSCULAR HGB CONC 33.2 (31.8-35.4); MONOCYTES # (AUTO) 0.4 K/uL (0.4-2.0); MONOCYTES % (AUTO) 5.1 (0-10); NEUTROPHILS # (AUTO) 3.6 K/ul (2.0-6.9); NEUTROPHILS % (AUTO) 46.7; PLATELET COUNT 241 10^3/uL (140-440); RED BLOOD COUNT 4.42 10^6/ul (4.20-5.40)
[2017-02-11 05:09] LABS: ALBUMIN 3.5 g/dL (3.4-5.0); ALBUMIN/GLOBULIN RATIO 1.21; ANION GAP 13.3; BILIRUBIN,TOTAL 0.21 mg/dL (0.00-1.20); BUN/CREATININE RATIO 20.28; CREATININE 0.69 mg/dL (0.60-1.30); POTASSIUM 3.3 mmol/L (3.5-5.10); TOTAL PROTEIN 6.4 g/dL (6.4-8.2)
[2017-02-11] MEDS: PROTONIX PO SCH (05:42)
[2017-02-11] MEDS: CARAFATE PO SCH ×2 (05:42→11:57)
[2017-02-11] MEDS ORDERED: K-DUR PO STA (07:43)
[2017-02-11] MEDS: HYDROCHLOROTHIAZIDE PO SCH (08:19)
--- NOTE | 2017-02-11 08:54 | PN ---
DATE OF SERVICE: 02/10/17 SUBJECTIVE: The patient is a 46 year old white female hospitalized with chest pain. The patient's chest pain seems to be noncardiac. REVIEW OF SYSTEMS: CONSTITUTIONAL: No night sweats. No fatigue, malaise, lethargy. No fever or chills. HEENT: Eyes: No visual changes. No eye pain. No eye discharge. ENT: No runny nose. No epistaxis. No sinus pain. No sore throat. No odynophagia. No congestion. RESPIRATORY: No cough, no congestion. No hemoptysis. CARDIOVASCULAR: No angina symptoms. No CHF symptoms. No atypical chest pain for CAD. No palpitations. No shortness of breath. GASTROINTESTINAL: No abdominal pain. No nausea or vomiting. No diarrhea or constipation. No hematemesis. No hematochezia. GENITOURINARY: No urgency. No frequency. No dysuria. No hematuria. No obstructive symptoms. No discharge. No pain. No significant abnormal bleeding. MUSCULOSKELETAL: No musculoskeletal pain; no joint swelling. NEUROLOGICAL: No headache. No neck pain. No syncope. No seizures. No dizziness. PSYCHIATRIC: Not anxious. No depression. No suicidal thoughts. No homicidal thoughts. SKIN: No rash. No lesions. No wounds. ENDOCRINE: No unexplained weight loss. No weight gain. HEMATOLOGIC/LYMPHATIC: No anemia. No purpura. No petechiae. No prolonged or excessive bleeding. No palpable lymph nodes. PHYSICAL EXAMINATION: GENERAL: The patient is oriented to time, place and person. VITAL SIGNS: Temperature 97.4, pulse 67, respiratory rate 19, blood pressure 102/70 and pulse ox 97%. HEENT: Head normocephalic, atraumatic. Eyes: Extraocular muscles are intact. Pupils are equal, round and reactive to light and accommodation. Ears: No lesions. Nose appeared normal. Throat: No exudate or erythema. NECK: Supple. No JVD, no carotid bruit. No lymphadenopathy or thyromegaly. LUNGS: Decreased breath sounds but clear to auscultation. Percussion note normal. Chest symmetrical. HEART: S1, S2, no S3. No murmurs. No cyanosis or clubbing. No ascites. Pulses: Dorsalis pedis and posterior tibial pulses +1 to +2 both sides. ABDOMEN: Soft. Nontender. Bowel sounds active. No CVA tenderness. No mass felt. EXTREMITIES: No edema. Full range of motion of all extremities, equal. NEUROLOGIC: No focal deficit. Cranial nerves II through XII are grossly intact. No headache, no double vision or headache. SKIN: Not dry. Intact. Turgor - normal. LYMPHATIC: No palpable lymph nodes/no lymphedema. MUSCULOSKELETAL: Normal joints with no swelling. Muscle tone is normal. LABS: Hgb 13.1, hct 39, WBC 5,200 normal differential, creatinine 0.7, BUN 12, potassium 3.9, glucose 158. ASSESSMENT: 1. Chest pain seems to be non-cardiac 2. Gastroesophageal reflux disease PLAN: 1. The patient was advised to continue to followup with the mobile home set up person and primary MD 2. Echocardiogram done which was normal except for mild LVH, normal LV contractility 3. Stress echo negative for ischemia. The patient has poor exercise tolerance 4. The patient is advised to be up and about 5. Continue Protonix and Carafate 6. Antireflux measures discussed. 7. The patient had blood sugar of 158 and could be steroid injection and will be A1c 8. Condition is stable will discharge her tomorrow. The patient's BNP was less then 10, T4 TSH normal and GFR 84cc per minute. TIME SPENT: More than 30 minutes. Plan and coordination of the patient's care discussed in the presence of nurse. VANNESSA
[2017-02-11 10:20] VITALS: BP 100/61; TEMP 97.8
--- NOTE | 2017-02-11 10:22 | PCM.PROG ---
Attending Provider: ATTENDING PROVIDER: [facility] DATE OF SERVICE: 02/11/17 SUBJECTIVE: This 46 year old PATIENT DECLINED TO PROVIDE F was hospitalized 02/09/17. The patient is seen with Teresa, Nurse Practitioner. The patient states she is feeling good. She states she has not had any chest pain. The patient did well after stress test yesterday. The stress test was negative. Lipid panel is good. Thyroid function is normal, eating well and has no complaints. REVIEW OF SYSTEMS: CONSTITUTIONAL: No night sweats. No fatigue, malaise, lethargy. No fever or chills. HEENT: Eyes: No visual changes. No eye pain. No eye discharge. ENT: No runny nose. No epistaxis. No sinus pain. No odynophagia. No congestion. RESPIRATORY: No cough, no congestion. No hemoptysis. CARDIOVASCULAR: No angina symptoms. No CHF symptoms. No atypical chest pain for CAD. No palpitations. No shortness of breath. GASTROINTESTINAL: Good appetite. No abdominal pain. No nausea or vomiting. No diarrhea or constipation. No hematemesis. No hematochezia. GENITOURINARY: No urgency. No frequency. No dysuria. No hematuria. No obstructive symptoms. No discharge. No pain. No significant abnormal bleeding. MUSCULOSKELETAL: No musculoskeletal pain; no joint swelling. NEUROLOGICAL: Awake, alert, oriented to time, place and person. No headache. No neck pain. No syncope. No seizures. No dizziness. PSYCHIATRIC: Not anxious. No depression. No suicidal thoughts. No homicidal thoughts. SKIN: No rash. No lesions. No wounds. ENDOCRINE: No unexplained weight loss. No weight gain. HEMATOLOGIC/LYMPHATIC: No anemia. No purpura. No petechiae. No prolonged or excessive bleeding. No palpable lymph nodes. PHYSICAL EXAMINATION: GENERAL: The patient is awake, alert and oriented, lying in bed in no distress. VITAL SIGNS: Temperature 95.8 F, Pulse 71, Respiratory Rate 16, BP 91/59, Pulse Ox 96% HEENT: Head normocephalic, atraumatic. Eyes: Extraocular muscles are intact. Pupils are equal, round and reactive to light and accommodation. Ears: No lesions. Nose appeared normal. Throat: No exudate or erythema. NECK: Supple. No JVD, no carotid bruit. No lymphadenopathy or thyromegaly. LUNGS: Clear to auscultation. Percussion note normal. Chest symmetrical. HEART: S1, S2, no S3. No murmurs. No cyanosis or clubbing. No ascites. Pulses: Dorsalis pedis and posterior tibial pulses +1 to +2 both sides. ABDOMEN: Soft. Non-tender. Bowel sounds active. No CVA tenderness. No mass felt. EXTREMITIES: No edema. Full range of motion of all extremities, equal. NEUROLOGIC: No focal deficit. Cranial nerves II through XII are grossly intact. No headache, no double vision or headache. SKIN: Not dry. Intact. Turgor-normal. LYMPHATIC: No palpable lymph nodes/no lymphedema. MUSCULOSKELETAL: Normal joints with no swelling. Muscle tone is normal. LAB REVIEW: 02/11/17 04:41 02/11/17 04:41 02/11/17 04:41: WBC 7.80, RBC 4.42, Hgb 12.6, Hct 38.0, MCV 86.0, MCH 28.5, MCHC 33.2, RDW Coeff of Cuauhtemoc 12.9, Plt Count 241, Immature Gran % (Auto) 0.3, Neut % (Auto) 46.7, Lymph % (Auto) 46.0, [place] % (Auto) 5.1, Eos % (Auto) 1.4, Baso % (Auto) 0.5, Immature Gran # (Auto) 0.0, Neut # 3.6, Lymph # 3.6 H, [place] # 0.4, Eos # 0.1, Baso # 0.0, Sodium 144, Potassium 3.3 L, Chloride 107, Carbon Dioxide 27, Anion Gap 13.3, BUN 14, Creatinine 0.69, Estimated GFR (MDRD) 92.00 , BUN/Creatinine Ratio 20.28, Glucose 101, Calcium 9.0, Total Bilirubin 0.21, AST 11 L, ALT 14, Alkaline Phosphatase 56, Total Protein 6.4, Albumin 3.5, Globulin 2.9, Albumin/Globulin Ratio 1.21 ASSESSMENT: 1. Chest pain, resolved. 2. GERD 3. Anxiety 4. Depression 5. Hypokalemia PLAN: 1. Potassium 40 mEq 2. Anticipate discharge today 3. Followup with primary care within 2 to 3 days with Aye Cifuentes in [place], [place] 4. Keep scheduled EGD/colonoscopy on 02/13/17 Plan and coordination of the patient's care discussed in the presence of Technician Automated Equipment and nurse. CONDITION: Stable SCRIBED BY: MONAE DOMINGUEZ Laborer [employer] scribed while in presence of service performed by Dr. NATALIE [facility]/TERESA CABALLERO APRN on 02/11/17 ([id number])
--- NOTE | 2017-02-11 12:23 | CM.DICTOOL ---
ADMISSION: 02/09/17 13:49 DISCHARGE: 02/11/17 DATE OF SERVICE: 02/11/17 FINAL DIAGNOSIS CHEST PAIN HYPERTENSION GERD PANCREATITIS BY HISTORY DDD L-SPINE ANXIETY/DEPRESSION FORMER SMOKER (3 YEARS AGO) HYSTERECTOMY CHOLECYSTECTOMY LAST VITALS Temp Pulse Resp BP Pulse Ox 95.8 F L 71 16 91/59 L 96 02/11/17 05:25 02/11/17 05:25 02/11/17 05:25 02/11/17 05:25 02/11/17 05:25 ACTIVE HOME MEDICATIONS Hydrochlorothiazide (Hydrochlorothiazide) 25 mg PO DAILY [facility] Last Admin: 02/11/17 08:19 Dose: 25 mg Phentermine HCL 37.5 mg PO DAILY Sucralfate (Carafate) 1 gm PO ACHS [facility] Last Admin: 02/11/17 05:42 Dose: 1 gm ALLERGIES aspirin Adverse Reaction (Verified 02/09/17 11:37) Penicillins Adverse Reaction (Verified 02/09/17 11:37) NEW PRESCRIPTIONS: NO NEW MEDICATIONS SMOKING: FORMER SMOKER. NONE FOR THE PAST THREE YEARS. DISEASE SPECIFIC EDUCATION: CHEST PAIN GERD HOME MEDICATIONS ACTIVITY AND DIET PRIMARY CARE PROVIDER FOLLOW-UP GASTROENTEROLOGY FOLLOW-UP LAB REVIEW: 02/11/17 04:41 02/11/17 04:41 02/11/17 04:41: WBC 7.80, RBC 4.42, Hgb 12.6, Hct 38.0, MCV 86.0, MCH 28.5, MCHC 33.2, RDW Coeff of Cu[place] 12.9, Plt Count 241, Immature Gran % (Auto) 0.3, Neut % (Auto) 46.7, Lymph % (Auto) 46.0, [place] % (Auto) 5.1, Eos % (Auto) 1.4, Baso % (Auto) 0.5, Immature Gran # (Auto) 0.0, Neut # 3.6, Lymph # 3.6 H, [place] # 0.4, Eos # 0.1, Baso # 0.0, Sodium 144, Potassium 3.3 L, Chloride 107, Carbon Dioxide 27, Anion Gap 13.3, BUN 14, Creatinine 0.69, Estimated GFR (MDRD) 92.00 , BUN/Creatinine Ratio 20.28, Glucose 101, Calcium 9.0, Total Bilirubin 0.21, AST 11 L, ALT 14, Alkaline Phosphatase 56, Total Protein 6.4, Albumin 3.5, Globulin 2.9, Albumin/Globulin Ratio 1.21 PLAN: DISCHARGE HOME TODAY MAKE AN APPOINTMENT WITH YOUR PRIMARY CARE PROVIDER, STEFANIE GRAVES, SOON POSSIBLE KEEP YOUR SCHEDULED APPOINTMENT IN [place], [place] FOR YOUR ENDOSCOPY AND COLONOSCOPY ON 02/13/17 RESUME YOUR HOME MEDICATIONS PER LIST PROVIDED BY THE NURSING STAFF NO NEW MEDICATIONS ACTIVITY: GET PLENTY OF REST AT HOME. GRADUALLY INCREASE YOUR ACTIVITY LEVEL ACCORDING TO YOUR TOLERATION DIET: HEALTHY HEART SUMMARY: THE PATIENT IS ALERT AND ORIENTED X3. SHE CURRENTLY RESIDES AT HOME. SHE IS INDEPENDENT WITH ADL'S AND REQUIRES NO DME, HOME HEALTH OR HOMEMAKING SERVICES. SHE DESIRES TO RETURN TO HER HOME AT DISCHARGE. HER SKIN TURGOR IS INTACT AND WITHOUT DECUBITUS ULCERS. SHE IS ADEQUATELY HYDRATED. MS. ARTHUR HAS BEEN PAIN FREE FOR THE PAST 24 HOURS. HER VITAL SIGNS ARE STABLE AND WITHIN ACCEPTABLE RANGES. SHE IS AWARE AND AGREEABLE FOR DISCHARGE HOME TODAY. JELLY SHI NP NATALIE HILL MD
--- NOTE | 2017-02-11 15:33 | HP ---
DATE OF SERVICE: 02/09/17 REASON FOR HOSPITALIZATION: Chest pain HISTORY OF PRESENT ILLNESS: The patient is a 46 year old white female came to the emergency room with complaint of having chest pain. The patient's chest pain was left sided precordial going to the left axillary muscle, left shoulder and left arm. The patient's says that it has been there for two days; started on Thursday and today is Thursday. The patient's pain comes and goes, dull ache, constant at times , unrelated to exertion. The patient has been recently worked up for reflux problems. She is being investigated by Dr. Urbina who is gas fitter helper in [facility]. She had MRI of the abdomen done which was practically negative for any acute problems. The patient had similar time of chest pain for what she was work up 6 hours ago with negative findings at [facility]. REVIEW OF SYSTEMS: CONSTITUTIONAL: No night sweats. Fatigue and weakness. No fever or chills. HEENT: Eyes: No visual changes. No eye pain. No eye discharge. ENT: No runny nose. No epistaxis. No sinus pain. No sore throat. No odynophagia. No ear pain. No congestion. RESPIRATORY: Mild cough, no congestion. No hemoptysis. CARDIOVASCULAR: No angina symptoms. No CHF symptoms. No atypical chest pain for CAD. No palpitations. No shortness of breath. Chest pain as described above ; left sided precordial muscular type of pain going to the left shoulder and left arm with some tenderness duration two days. No PND. No Orthopnea. No exertional chest discomfort. GASTROINTESTINAL: No abdominal pain. No nausea or vomiting. No diarrhea or constipation. No hematemesis. No hematochezia. Reflux type of symptoms lately. GENITOURINARY: No urgency. No frequency. No dysuria. No hematuria. No obstructive symptoms. No discharge. No pain. No significant abnormal bleeding. MUSCULOSKELETAL: No musculoskeletal pain. No joint swelling. No arthritis. NEUROLOGICAL: No headache. No neck pain. No syncope. No seizures. No dizziness. PSYCHIATRIC: Not anxious. No depression. No suicidal thoughts. No homicidal thoughts. SKIN: No rash. No lesions. No wounds. ENDOCRINE: No unexplained weight loss. No weight gain. HEMATOLOGIC/LYMPHATIC: No anemia. No purpura. No petechiae. No prolonged or excessive bleeding. No palpable lymph nodes. PERSONAL/FAMILY/SOCIAL HISTORY: The patient is with four kids, lives with the aunt. Mother had irregular heart beat and father had diabetes. She is nonsmoker and no history of drug abuse and no history of alcohol abuse. She is not on any anti-steroidal anti-inflammatory. PAST MEDICAL/SURGICAL PROBLEMS: History of Cholecystectomy Hysterectomy Used to undergo EGD choloscopy in next few days History of depression Bipolar for which she has been disabled and on Medicare; being followed by Dr. Barron Hypertension Obesity, BMI 41 MEDICATIONS: Hydrochlorothiazide Phentermine Carafate ALLERGIES: Aspirin Penicillin PHYSICAL EXAMINATION: GENERAL: The patient is oriented to time, place and person. VITAL SIGNS: Temperature 96.5, pulse 70, respiratory rate 16, blood pressure 133/86 and pulse ox 97%. HEENT: Head normocephalic, atraumatic. Eyes: Extraocular muscles are intact. Pupils are equal, round and reactive to light and accommodation. Ears: No lesions. Nose appeared normal. Throat: No exudate or erythema. NECK: Supple. No JVP, no carotid bruit. No lymphadenopathy or thyromegaly. LUNGS: Decreased breath sounds but clear to auscultation. Percussion note normal. Chest symmetrical. HEART: S1, S2, no S3. No murmurs. No cyanosis or clubbing. No ascites. Pulses: Dorsalis pedis and posterior tibial pulses +2 bilaterally. ABDOMEN: Soft. Nontender. Bowel sounds active. No CVA tenderness. No mass felt. EXTREMITIES: No edema. Full range of motion of all extremities, equal. NEUROLOGIC: No focal deficit. Cranial nerves II through XII are grossly intact. No headache, no double vision or headache. Mental status normal. No real depression at present time, she is cheerful. SKIN: Dry. Intact. Turgor - normal. Mucosa Membrane dry. LYMPHATIC: No palpable lymph nodes/no lymphedema. MUSCULOSKELETAL: Normal joints with no swelling. Muscle tone is normal. LABS: EKG sinus rhythm, no acute changes. Telemetry sinus rhythm, no ST-T wave changes. Hgb 13.4, hct 41, WBC 5,800 normal differential, D-Dimer 355 which is normal range, creatinine 0.8, BUN 9, BNP less than 10, CK level normal. Chest x- ray is negative. Lipids the patient says these are unknown. ASSESSMENT: 1. Chest pain by history seems to be non-cardiac. Has some character of coronary insufficiency 2. History of hypertension 3. BMI of more than 40 putting her into morbid obese range 4. History of depression 5. Gastroesophageal reflux disease type of symptoms PLAN: 1. Educated about reflux disease and how to prevent it. 2. Will start Protonix 40mg twice a day 3. Put her back on Carafate 1gram PO four times a day 4. IV Toradol 30mg IV and 1 cc Decadron for muscular skeletal type of pain. 5. Echocardiogram 2D-M mode 6. Stress echo in the morning 7. The patient is explained about coronary artery disease, ASHD and the right factors 8. Will do T4 TSH 9. Lipid profile 10.Counseling for weight loss done 11.Bariatric referral for morbid obesity, advised and she declined. The patient has been on Phentermine and side effects discussed with patient. 12.The patient's cardiovascular status at present time is stable. The patient's mental status is normal. Her thought process is normal. Her behavior is normal. The patient has an appointment with Dr. Barron in near future. CC: Dr. Cifuentes TIME SPENT: More than 70 minutes. [facility]
--- NOTE | 2017-02-19 15:48 | DS ---
DATE OF SERVICE: 02/11/17 FINAL DIAGNOSIS: 1. Chest pain 2. Hypertension 3. GERD 4. Pancreatitis by history 5. DDD L-spine 6. Anxiety/Depression 7. Former smoker (3years ago) 8. Hysterectomy 9. 10.Cholecystectomy LAST VITALS: Temperature 95.8, pulse 71, respiratory rate 16, blood pressure 91/59 and pulse ox 96%. DISCHARGE INSTRUCTIONS: Discharge the patient home today. Make an appointment with primary care provider , Aye Espitia as soon as possible. Keep scheduled appointment in [place], [place] for endoscopy and colonoscopy on 02/13/17. Resume home medications as per list provided. MEDICATIONS AT DISCHARGE: Hydrochlorothiazide 25mg PO daily Phentermine 37.5 mg PO daily Carafate 1gram PO ACHS ALLERGIES: Aspirin Penicillin NEW PRESCRIPTIONS: No new medications DIET INSTRUCTIONS: Heart healthy ACTIVITY: Get plenty of rest at home. Gradually increase activity level according to toleration. SMOKING: Former smoker. None for the past three years. DISEASE SPECIFIC EDUCATION: Chest pain GERD Home medications Activity and diet Primary care provider followup Gastroenterology followup. LABS: Hgb 13.1, hct 39, WBC 5,200 normal differential, creatinine and BUN normal, glucose 108 fasting. The patient may need A1c as an outpatient blood sugar was high because patient was given 1cc Decadron on admission for left arm pain and musculoskeletal type of pain involving her precordial area. T4 TSH, BNP all negative. HOSPITAL COURSE: The patient is a 46 year old white female hospitalized with chest pain. The patient's chest pain with somewhat atypical. She underwent cardiac workup with EKG's that were normal, serial cardiac markers negative, Telemetry did not show any ST-T wave changes and showed sinus rhythm. Echocardiogram was normal except for borderline LVH. Stress echo was negative for ischemia. The patient's lipid profile is normal. Likely the patient's chest pain is from reflux and she has been put on Protonix and Carafate and she has responded to it. The patient has appointment with Dr. Urbina who is a manager forms. The patient is discharged in stable condition to follow as outpatient by Dr. Cifuentes, Primary Health Provider. The patient has BMI of 41 and declined any bariatric center referral. Diet for weight loss discussed with the patient. CONDITION: Stable. TIME SPENT: More than 60 minutes. [facility]
--- NOTE | 2017-02-19 15:49 | PN ---
02/09/17: Level 5 02/10/17: Intermediate 02/11/17 D as in discharge MTDD
== END 2017-02-11 13:45 | disposition home or self-care (01) | DRG 313 ==
LOC: ED 11:33 → MEDSURG B 13:49 → OBSVTOIN 13:49
PROVIDERS: ADMIT Internal Medicine; ATTEND Internal Medicine
DX: R07.89 Other chest pain (principal); K21.9 Gastro-esophageal reflux disease without esophagitis; I10 Essential (primary) hypertension; M51.36 Other intervertebral disc degeneration, lumbar region; F41.8 Other specified anxiety disorders; E87.6 Hypokalemia; R20.0 Anesthesia of skin; R42 Dizziness and giddiness; R11.0 Nausea; Z87.19 Personal history of other diseases of the digestive system; Z87.891 Personal history of nicotine dependence; Z79.899 Other long term (current) drug therapy
CPT/HCPCS: 36415; 80053; 80061; 82550; 83880; 84132; 84439; 84443; 84484; 85025; 85379; 93005; 93010; 99284

== ENCOUNTER 2017-04-26 11:14 | Emergency (ER) ==
--- NOTE | 2017-04-26 11:41 | ED.PDOC ---
General ED Provider: Dr. PILAR MARQUEZ Chief Complaint: Cough Stated Complaint: cough, flu like symptoms , abdominal pain Time Seen by Physician: 11:19 Mode of Arrival: Walk-In Information Source: Patient Exam Limitations: No limitations Primary Care Provider: STEFANIE NARAYANAN Nursing and Triage Documentation Reviewed and Agree: Yes GI Complaint Exam - Abdominal Pain Complaint/Exam Onset: Gradual Symptoms Are: Still present Timing: Intermittent Initial Severity: Mild Current Severity: Mild Location of Pain: Diffuse Character: Reports: Aching Aggravating: Reports: None Alleviating: Reports: None Associated Signs and Symptoms: Reports: Cough. Denies: Diaphoresis, Fever, Chest pain, Dizziness, Back pain, Constipation, Blood in stool, Dysuria, Urinary frequency, Decreased urine output, Decreased appetite, Vaginal bleeding , Vaginal discharge, Nausea, Vomiting, Diarrhea, Sore throat, Decreased activity Related History: Reports: Similar episode AAA Risk Factors: Reports: Hypertension Cardiac Risk Factors: Reports: Hypertension Ectopic Risk Factors: Reports: None Ovarian Torsion Risk Factors: Reports: None Surgical Obstruction Risk Factors: Reports: None Related Surgical History: Reports: None Patient Rh Status: Unknown Abdominal Findings: Present: None Differential Diagnoses: Bowel Obstruction, Constipation, Gastroenteritis, Hepatitis, Pancreatitis, Irritable Bowel Syndrome, Pneumonia, Renal Colic, Ureteral Stone, UTI Review of Systems - Review Of Systems Constitutional: Reports: Malaise Eyes: Reports: No symptoms Ears, Nose, Mouth, Throat: Reports: No symptoms Respiratory: Reports: Cough Cardiac: Reports: No symptoms GI: Reports: Abdominal pain : Reports: No symptoms Musculoskeletal: Reports: No symptoms Skin: Reports: No symptoms Neurological: Reports: No symptoms Endocrine: Reports: No symptoms Hematologic/Lymphatic: Reports: No symptoms All Other Systems: Reviewed and Negative Past Medical History - Past Medical History Previously Healthy: No Endocrine: Reports: None Cardiovascular: Reports: Hypertension Respiratory: Reports: None Hematological: Reports: None Gastrointestinal: Reports: None, Pancreatitis (?) Genitourinary: Reports: None Neuro/Psych: Reports: Anxiety, Depression Musculoskeletal: Reports: Back Pain (buldging disk. ), Joint Pain Cancer: Reports: None Last Menstrual Period: na Other Pertinent Past Medical History: Obesity - Surgical History General Surgical History: Reports: Hysterectomy, , Appendectomy, Cholecystectomy (note recent MRI shows small stone or polyp in bile duct(MRI of back showed adrenal left nodules and polyp in ampula vater). Denies: Back Surgery - Family History Family History: Reports: Heart (father in his 60s past hx cabg diabetes copd; MGF with CHF ), Hypertension (mother with HT and angina), Cancer - Social History Smoking Status: Former smoker Hx Substance Use: No Alcohol Screening: None - Immunizations Tetanus Shot up to Date: No Influenza Vaccine within 12 Months: No Pneumococcal Vaccine up to Date: No Physical Exam - Physical Exam Appearance: Well-appearing, No pain distress, Well-nourished Eyes: MIKALA, EOMI, Conjunctiva clear ENT: Ears normal, Nose normal, Oropharynx normal Respiratory: Airway patent, Breath sounds clear, Breath sounds equal, Respirations nonlabored Cardiovascular: RRR, Pulses normal, No rub, No murmur GI/: Soft, Nontender, No masses, Bowel sounds normal, No Organomegaly Musculoskeletal: Normal strength, ROM intact, No edema, No calf tenderness Skin: Warm, Dry, Normal color Neurological: Sensation intact, Motor intact, Reflexes intact, Cranial nerves intact, Alert, Oriented Psychiatric: Affect appropriate, Mood appropriate Interpretation - Radiology Interpretation Radiology Interpretation By: Radiologist Radiology Results: No acute changes Critical Care Note - Critical Care Note Total Time (mins): 0 Course - Course Orders, Labs, Meds: Orders Category Date Time Status CBC W/ AUTO DIFF Stat LAB 04/26/17 11:37 Ordered COMPREHENSIVE METABOLIC PANEL Stat LAB 04/26/17 11:37 Ordered RAPID FLU A/B Stat LAB 04/26/17 11:37 Uncollected SERUM Stat LAB 04/26/17 Stop Req STREP SCREEN Stat LAB 04/26/17 11:37 Uncollected URINALYSIS C & S IF INDICATED Stat LAB 04/26/17 11:37 Uncollected CHEST, 2 VIEWS PA & LAT Stat RADS 04/26/17 11:38 Ordered Vital Signs: Temp Pulse Resp BP Pulse Ox 04/26/17 11:16 97.2 F L 63 20 127/67 98 Departure - Departure Time of Disposition: 11:41 Disposition: HOME SELF-CARE Discharge Problem: Cough, Viral syndrome Instructions: Viral Syndrome (ED) Condition: Good Pt referred to PMD for follow-up: Yes Additional Instructions: Please call your Family Physician as soon as possible to schedule a follow-up appointment. Allergies/Adverse Reactions: Allergies aspirin Adverse Reaction (Verified 04/26/17 11:26) Penicillins Adverse Reaction (Verified 04/26/17 11:26) Home Medications: Ambulatory Orders Citalopram Hydrobromide [Celexa] 40 mg PO BEDTIME 04/26/17 Hargill Carbonate 150 mg PO BEDTIME 04/26/17 Trazodone HCl 100 mg PO BEDTIME 04/26/17 Disposition Discussed With: Patient
[2017-04-26] MEDS ORDERED: ROCEPHIN IM STA (11:54)
[2017-04-26] MEDS ORDERED: DECADRON 4 MG/ML SDV IM STA (11:54)
[2017-04-26] MEDS ORDERED: LIDOCAINE 1 % AMP 5 ML (SUTURES) IM STA (11:54)
[2017-04-26] MEDS ORDERED: DUONEB NEB STA (11:54)
[2017-04-26 12:02] VITALS: BP 127/67; TEMP 97.2; BMI 41.8
[2017-04-26 12:10] LABS: BASOPHILS % (AUTO) 0.6 % (0.0-3.0); EOSINOPHILS # (AUTO) 0.3 K/ul (0.0-0.7); HEMATOCRIT 40.3 % (37.0-47.0); HEMOGLOBIN 13.1 g/dl (12.0-16.0); IMMATURE GRANULOCYTE % (AUTO) 0.3 % (0.0-5.0); LYMPHOCYTES # (AUTO) 2.3 K/uL (0.60-3.4); LYMPHOCYTES % (AUTO) 31.4 (10.0-50.0); MEAN CORPUSCULAR HEMOGLOBIN 28.7 pg (27.0-31.0); MEAN CORPUSCULAR HGB CONC 32.5 (31.8-35.4); MEAN CORPUSCULAR VOLUME 88.2 fl (81.0-99.0); MONOCYTES # (AUTO) 0.5 K/uL (0.4-2.0); MONOCYTES % (AUTO) 6.9 (0-10); NEUTROPHILS # (AUTO) 4.1 K/ul (2.0-6.9); NEUTROPHILS % (AUTO) 56.8; PLATELET COUNT 227 10^3/uL (140-440); RED BLOOD COUNT 4.57 10^6/ul (4.20-5.40); WHITE BLOOD COUNT 7.27 K/ul (4.6-10.2)
[2017-04-26 12:21] LABS: ALBUMIN 3.5 g/dL (3.4-5.0); ALBUMIN/GLOBULIN RATIO 1.17; ANION GAP 12.8; BILIRUBIN,TOTAL 0.33 mg/dL (0.00-1.20); BUN/CREATININE RATIO 18.3; CALCIUM 9.1 mg/dL (8.2-10.2); CREATININE 0.71 mg/dL (0.60-1.30); POTASSIUM 3.8 mmol/L (3.5-5.10); TOTAL PROTEIN 6.5 g/dL (6.4-8.2)
[2017-04-26 12:31] LABS: FLU INTERNAL QC INTERNAL QC VALID; RAPID FLU A NEGATIVE (NEGATIVE); RAPID FLU B NEGATIVE (NEGATIVE)
[2017-04-26 12:47] LABS: BILIRUBIN,URINE Negative (NEGATIVE); KETONES,URINE Negative (NEGATIVE); LEUKOCYTE ESTERASE ,URINE Negative (NEGATIVE); NITRITE,URINE Negative (NEGATIVE); PH,URINE 5.5 (5-9); PROTEIN,URINE Negative (NEGATIVE); URINE, BLOOD Negative (NEGATIVE)
[2017-04-26 12:49] LABS: ADD URINE MICROSCOPIC NO
--- NOTE | 2017-04-26 12:51 | ED.PDOC ---
General ED Provider: Dr. PILAR MARQUEZ Chief Complaint: Cough Stated Complaint: cough Time Seen by Physician: 11:12 Mode of Arrival: Walk-In Information Source: Patient Exam Limitations: No limitations Primary Care Provider: STEFANIE NARAYANAN Nursing and Triage Documentation Reviewed and Agree: Yes Respiratory Complaint Exam - Respiratory Complaint/Exam Onset/Duration: seen with nursing staff reports of flu like problemx1 day Symptoms Are: Still present Timing: Intermittent Initial Severity: Moderate Current Severity: Mild Location: Chest Character: Reports: Non-productive cough Aggravating: Reports: None Alleviating: Reports: Bronchodilators, Spontaneous resolution Associated Signs and Symptoms: Reports: Nasal congestion, Sinus discomfort. Denies: Rapid breathing, Dyspnea, Fever, Chills, Chest pain, Pleuritic chest pain, Wheezing, Hemoptysis, Dizziness, Calf pain, Calf swelling, Edema, URI, Hoarseness, Vomiting, Sore throat, Weight loss, Decreased oral intake, Increased thirst, Increased appetite, Increased urination Related History: Reports: Similar episode History of Healthcare-Acquired Pneumonia: No Related Surgical History: Reports: None Pulmonary Embolism Risk Factors: None Cardiac Risk Factors: Reports: Hypertension Pseudomonas Risk Factors: Reports: None Tuberculosis Risk Factors: Reports: None Status Asthmaticus Risk Factors: Reports: None Home Oxygen Use: No Recent Stress Test: No Recent Echo/LV Function: No Current Antibiotic Use: No Current Asthma Medication Use: No Respiratory Distress: None Inadequate Respiratory Effort: No Dysphagia Present: No Stridor Present: No JVD Present: No Accessory Muscle Use: No Retractions: Not Present Diminished Breath Sounds: No Grunting Respirations: No Kussmaul Respirations: No Differential Diagnoses: Pneumonia, Bronchitis Review of Systems - Review Of Systems Constitutional: Reports: Malaise Eyes: Reports: No symptoms Ears, Nose, Mouth, Throat: Reports: No symptoms Respiratory: Reports: Cough Cardiac: Reports: No symptoms GI: Reports: No symptoms : Reports: No symptoms Musculoskeletal: Reports: No symptoms Skin: Reports: No symptoms Neurological: Reports: No symptoms Endocrine: Reports: No symptoms Hematologic/Lymphatic: Reports: No symptoms All Other Systems: Reviewed and Negative Past Medical History - Past Medical History Previously Healthy: No Endocrine: Reports: None Cardiovascular: Reports: Hypertension Respiratory: Reports: None Hematological: Reports: None Gastrointestinal: Reports: None, Pancreatitis (?) Genitourinary: Reports: None Neuro/Psych: Reports: Anxiety, Depression Musculoskeletal: Reports: Back Pain (buldging disk. ), Joint Pain Cancer: Reports: None Last Menstrual Period: na Other Pertinent Past Medical History: Obesity - Surgical History General Surgical History: Reports: Hysterectomy, , Appendectomy, Cholecystectomy (note recent MRI shows small stone or polyp in bile duct(MRI of back showed adrenal left nodules and polyp in ampula vater). Denies: Back Surgery - Family History Family History: Reports: Heart (father in his 60s past hx cabg diabetes copd; MGF with CHF ), Hypertension (mother with HT and angina), Cancer - Social History Smoking Status: Former smoker Hx Substance Use: No Alcohol Screening: None - Immunizations Tetanus Shot up to Date: No Influenza Vaccine within 12 Months: No Pneumococcal Vaccine up to Date: No Physical Exam - Physical Exam Appearance: Well-appearing, No pain distress, Well-nourished Eyes: MIKALA, EOMI, Conjunctiva clear ENT: Ears normal, Nose normal, Oropharynx normal Respiratory: Rhonchi Cardiovascular: RRR, Pulses normal, No rub, No murmur GI/: Soft, Nontender, No masses, Bowel sounds normal, No Organomegaly Musculoskeletal: Normal strength, ROM intact, No edema, No calf tenderness Skin: Warm, Dry, Normal color Neurological: Sensation intact, Motor intact, Reflexes intact, Cranial nerves intact, Alert, Oriented Psychiatric: Affect appropriate, Mood appropriate Interpretation - Radiology Interpretation Radiology Interpretation By: ED Physician Radiology Results: Negative Exam Interpreted: CXR Critical Care Note - Critical Care Note Total Time (mins): 0 Course - Course Hematology/Chemistry: 04/26/17 11:50 04/26/17 11:50 Orders, Labs, Meds: Lab Review 04/26/17 04/26/17 11:45 11:50 WBC 7.27 RBC 4.57 Hgb 13.1 Hct 40.3 MCV 88.2 MCH 28.7 MCHC 32.5 RDW Coeff of [place] 13.0 Plt Count 227 Immature Gran % (Auto) 0.3 Neut % (Auto) 56.8 Lymph % (Auto) 31.4 [place] % (Auto) 6.9 Eos % (Auto) 4.0 Baso % (Auto) 0.6 Immature Gran # (Auto) 0.0 Neut # 4.1 Lymph # 2.3 [place] # 0.5 Eos # 0.3 Baso # 0.0 Sodium 144 Potassium 3.8 Chloride 107 Carbon Dioxide 28 Anion Gap 12.8 BUN 13 Creatinine 0.71 Estimated GFR (MDRD) 89.00 BUN/Creatinine Ratio 18.30 Glucose 89 Calcium 9.1 Total Bilirubin 0.33 AST 14 L ALT 15 Alkaline Phosphatase 67 Total Protein 6.5 Albumin 3.5 Globulin 3.0 Albumin/Globulin Ratio 1.17 Serum , Qual Cancelled Influenza A (Rapid) Negative Influenza B (Rapid) Negative Orders Category Date Time Status NEBULIZER TREATMENT Stat CARDIO 04/26/17 11:54 Completed CBC W/ AUTO DIFF Stat LAB 04/26/17 11:50 Completed COMPREHENSIVE METABOLIC PANEL Stat LAB 04/26/17 11:50 Completed MOLECULAR GROUP A STREP Stat LAB 04/26/17 11:45 Results RAPID FLU A/B Stat LAB 04/26/17 11:45 Completed STREP SCREEN Stat LAB 04/26/17 11:45 Results URINALYSIS C & S IF INDICATED Stat LAB 04/26/17 12:25 Received Ceftriaxone Sodium [Rocephin] MEDS 04/26/17 11:54 Discontinued 1 gm IM ONCE STA Dexamethasone 4 mg/ml Inj [Decadron 4 mg/ml Sdv] MEDS 04/26/17 11:54 Discontinued 4 mg IM ONCE STA Ipratropium/Albuterol Neb [Duoneb] MEDS 04/26/17 11:54 Discontinued 1 vial NEB ONCE STA Lidocaine HCl/Pf [Lidocaine 1 % Amp 5 ml (Sutures)] MEDS 04/26/17 11:54 Discontinued 2.1 ml IM ONCE STA CHEST, 2 VIEWS PA & LAT Stat RADS 04/26/17 11:38 Taken Medications Discontinued Medications Generic Name Dose Route Start Last Admin Trade Name Miracle PRN Reason Stop Dose Admin Albuterol/Ipratropium 1 vial 04/26/17 11:54 04/26/17 12:00 Duoneb NEB 04/26/17 11:55 1 vial ONCE STA Administration Ceftriaxone Sodium 1 gm 04/26/17 11:54 04/26/17 12:11 Rocephin IM 04/26/17 11:55 1 gm ONCE STA Administration Dexamethasone Sodium Phosphate 4 mg 04/26/17 11:54 04/26/17 12:10 Decadron 4 Mg/Ml Sdv IM 04/26/17 11:55 4 mg ONCE STA Administration Lidocaine HCl 2.1 ml 04/26/17 11:54 04/26/17 12:10 Lidocaine 1 % Amp 5 Ml (Sutures) IM 04/26/17 11:55 2.1 ml ONCE STA Administration Vital Signs: Temp Pulse Resp BP Pulse Ox 04/26/17 11:16 97.2 F L 63 20 127/67 98 Departure - Departure Time of Disposition: 12:51 Disposition: HOME SELF-CARE Discharge Problem: Cough, Viral syndrome, Bronchitis Instructions: Viral Syndrome (ED) Condition: Good Pt referred to PMD for follow-up: Yes Additional Instructions: Please call your Family Physician as soon as possible to schedule a follow-up appointment. Allergies/Adverse Reactions: Allergies aspirin Adverse Reaction (Verified 04/26/17 11:26) Penicillins Adverse Reaction (Verified 04/26/17 11:26) Home Medications: Ambulatory Orders Citalopram Hydrobromide [Celexa] 40 mg PO BEDTIME 04/26/17 [place] Carbonate 150 mg PO BEDTIME 04/26/17 Trazodone HCl 100 mg PO BEDTIME 04/26/17
--- NOTE | 2017-04-26 13:15 | DI ---
EXAM: Two-view chest. HISTORY: Cough. Green sputum. COMPARISON: 02/09/2017 FINDINGS: AP and lateral views of the chest. The lungs are clear without consolidation or effusion . The heart size and pulmonary vasculature is normal. There is no pneumothorax. The osseous struc tures are normal for age. The aorta is unremarkable. IMPRESSION: No acute pulmonary disease.
== END 2017-04-26 12:59 | disposition home or self-care (01) ==
LOC: ED 11:14
DX: B34.9 Viral infection, unspecified (principal); J20.8 Acute bronchitis due to other specified organisms
CPT/HCPCS: 36415; 80053; 81001; 85025; 87651; 87804; 87880; 94640; 96372; 99283

== ENCOUNTER 2018-03-10 11:10 | Outpatient (CLI) | END 2018-03-10 11:11 | disposition home or self-care (01) | LOC: RAD 11:10 | PROVIDERS: ATTEND Physician Assistant Medical | DX: Z12.31 Encounter for screening mammogram for malignant neoplasm of breast (principal) | CPT/HCPCS: 77067 ==

== ENCOUNTER 2018-05-01 14:51 | Emergency (ER) | payer OTHER ==
[2018-05-01 14:53] VITALS: BP 152/91; TEMP 97.4; BMI 41.0
[2018-05-01] MEDS ORDERED: DECADRON 4 MG/ML SDV IM STA (15:01)
[2018-05-01] MEDS ORDERED: LIDOCAINE HCL 1% SDV IM STA (15:01)
[2018-05-01] MEDS ORDERED: ROCEPHIN IM STA (15:01)
--- NOTE | 2018-05-01 15:06 | ED.PDOC ---
General ED Provider: Dr. PILAR MARQUEZ Chief Complaint: Cough Stated Complaint: COUGH Time Seen by Physician: 15:00 Mode of Arrival: Walk-In Information Source: Patient Exam Limitations: No limitations Primary Care Provider: STEFANIE NARAYANAN Nursing and Triage Documentation Reviewed and Agree: Yes Does patient meet sepsis criteria?: No If yes, has appropriate treatment been initiated?: No System Inflammatory Response Syndrome: Not Applicable Sepsis Protocol: For patient's 13 years and over: Temp is 96.8 and below OR 101 and greater Pulse >90 BPM Resp >20/minute Acutely Altered Mental Status Are patient's symptoms suggestive of a new infection, such as: -Pneumonia -Skin, Soft Tissue -Endocarditis -UTI -Bone, Joint Infection -Implantable Device -Acute Abdominal Infection -Wound Infection -Meningitis -Blood Stream Catheter Infection -Unknown Respiratory Complaint Exam - Respiratory Complaint/Exam Onset/Duration: 1 WEEK Symptoms Are: Still present Timing: Intermittent Initial Severity: Moderate Current Severity: Moderate Location: Throat, Chest Character: Reports: Non-productive cough Aggravating: Reports: URI Associated Signs and Symptoms: Reports: URI, Nasal congestion. Denies: Rapid breathing, Dyspnea, Fever, Chills, Chest pain, Pleuritic chest pain, Wheezing, Hemoptysis, Dizziness, Calf pain, Calf swelling, Edema, Hoarseness, Sinus discomfort, Vomiting, Sore throat, Weight loss, Decreased oral intake, Increased thirst, Increased appetite, Increased urination Related History: Reports: Similar episode History of Healthcare-Acquired Pneumonia: No Related Surgical History: Reports: None Pulmonary Embolism Risk Factors: None Cardiac Risk Factors: Reports: None Pseudomonas Risk Factors: Reports: None Tuberculosis Risk Factors: Reports: None Status Asthmaticus Risk Factors: Reports: None Home Oxygen Use: No Recent Stress Test: No Recent Echo/LV Function: No Current Antibiotic Use: No Current Asthma Medication Use: No Respiratory Distress: None Inadequate Respiratory Effort: No Dysphagia Present: No Stridor Present: No JVD Present: No Accessory Muscle Use: No Retractions: Not Present Diminished Breath Sounds: No Sinus Tenderness: None Grunting Respirations: No Kussmaul Respirations: No Differential Diagnoses: Pneumonia, Bronchitis, URI, Lower Resp. Infection Review of Systems - Review Of Systems Constitutional: Reports: No symptoms Eyes: Reports: No symptoms Ears, Nose, Mouth, Throat: Reports: No symptoms Respiratory: Reports: Cough Cardiac: Reports: No symptoms GI: Reports: No symptoms : Reports: No symptoms Musculoskeletal: Reports: No symptoms Skin: Reports: No symptoms Neurological: Reports: No symptoms Endocrine: Reports: No symptoms Hematologic/Lymphatic: Reports: No symptoms All Other Systems: Reviewed and Negative Past Medical History - Past Medical History Previously Healthy: No Endocrine: Reports: None Cardiovascular: Reports: Hypertension Respiratory: Reports: None Hematological: Reports: None Gastrointestinal: Reports: None, Pancreatitis (?) Genitourinary: Reports: None Neuro/Psych: Reports: Anxiety, Depression Musculoskeletal: Reports: Back Pain (buldging disk. ), Joint Pain Cancer: Reports: None Last Menstrual Period: none Other Pertinent Past Medical History: Obesity - Surgical History General Surgical History: Reports: Hysterectomy, , Appendectomy, Cholecystectomy (note recent MRI shows small stone or polyp in bile duct(MRI of back showed adrenal left nodules and polyp in ampula vater). Denies: Back Surgery - Family History Family History: Reports: Heart (father in his 60s past hx cabg diabetes copd; MGF with CHF ), Hypertension (mother with HT and angina), Cancer - Social History Smoking Status: Former smoker Hx Substance Use: No Alcohol Screening: None - Immunizations Influenza Vaccine within 12 Months: No Pneumococcal Vaccine up to Date: No Physical Exam - Physical Exam Appearance: Well-appearing, No pain distress, Well-nourished Eyes: MIKALA, EOMI, Conjunctiva clear ENT: Ears normal, Nose normal, Oropharynx normal Respiratory: Airway patent, Breath sounds clear, Breath sounds equal, Respirations nonlabored Cardiovascular: RRR, Pulses normal, No rub, No murmur GI/: Soft, Nontender, No masses, Bowel sounds normal, No Organomegaly Musculoskeletal: Normal strength, ROM intact, No edema, No calf tenderness Skin: Warm, Dry, Normal color Neurological: Sensation intact, Motor intact, Reflexes intact, Cranial nerves intact, Alert, Oriented Psychiatric: Affect appropriate, Mood appropriate Interpretation - Radiology Interpretation Radiology Interpretation By: ED Physician Radiology Results: Negative Exam Interpreted: CXR Critical Care Note - Critical Care Note Total Time (mins): 0 Course - Course Orders, Labs, Meds: Orders Category Date Time Status Ceftriaxone Sodium [Rocephin] MEDS 05/01/18 15:01 Stat 1 gm IM ONCE STA Dexamethasone 4 mg/ml Inj [Decadron 4 mg/ml Sdv] MEDS 05/01/18 15:01 Stat 4 mg IM ONCE STA Lidocaine HCl/Pf [Lidocaine HCl 1% Sdv] MEDS 05/01/18 15:01 Stat 2.1 ml IM ONCE STA CHEST, 2 VIEWS PA & LAT Stat RADS 05/01/18 15:00 Ordered Medications Discontinued Medications Generic Name Dose Route Start Last Admin Trade Name Miracle PRN Reason Stop Dose Admin Ceftriaxone Sodium 1 gm 05/01/18 15:01 Rocephin IM 05/01/18 15:02 ONCE STA Dexamethasone Sodium Phosphate 4 mg 05/01/18 15:01 Decadron 4 Mg/Ml Sdv IM 05/01/18 15:02 ONCE STA Lidocaine HCl 2.1 ml 05/01/18 15:01 Lidocaine Hcl 1% Sdv IM 05/01/18 15:02 ONCE STA Vital Signs: Temp Pulse Resp BP Pulse Ox 05/01/18 14:51 97.4 F L 90 20 152/91 H 97 Departure - Departure Time of Disposition: 15:06 Disposition: HOME SELF-CARE Discharge Problem: Cough, Bronchitis Instructions: Acute Bronchitis (ED), Bronchospasm (ED) Condition: Good Pt referred to PMD for follow-up: Yes IPMP verified?: No Additional Instructions: Please call your Family Physician as soon as possible to schedule a follow-up appointment. Allergies/Adverse Reactions: Allergies aspirin Adverse Reaction (Verified 05/01/18 14:53) Penicillins Adverse Reaction (Verified 05/01/18 14:53) Home Medications: Ambulatory Orders Citalopram Hydrobromide [Celexa] 40 mg PO BEDTIME 04/26/17 [place] Carbonate 300 mg PO BEDTIME 04/26/17 Trazodone HCl 50 mg PO BEDTIME 04/26/17 Disposition Discussed With: Patient
--- NOTE | 2018-05-01 17:55 | DI ---
EXAM: PA and lateral views of the chest HISTORY: Cough COMPARISON: Chest Xray from 04/26/2017 FINDINGS: Lungs are clear with no lobar consolidation, failure, large effusion or significant atelec tasis. Cardiac and mediastinal silhouettes show no acute abnormality. No acute osseous or soft tiss ue abnormalities. IMPRESSION: No active disease.
== END 2018-05-01 16:09 | disposition home or self-care (01) ==
LOC: ED 14:51
DX: J40 Bronchitis, not specified as acute or chronic (principal)
CPT/HCPCS: 96372; 99282

== ENCOUNTER 2018-05-10 17:36 | Emergency (ER) | payer OTHER ==
[2018-05-10 17:38] VITALS: BP 136/85; TEMP 97.6; BMI 41.1
--- NOTE | 2018-05-10 17:53 | ED.PDOC ---
General ED Provider: Dr. PILAR MARQUEZ Chief Complaint: Tooth Problem Stated Complaint: dental pain Time Seen by Physician: 17:40 (CLARK PRESENT AT ALL TIMES ) Mode of Arrival: Walk-In Information Source: Patient Exam Limitations: No limitations Primary Care Provider: STEFANIE NARAYANAN Referred to ED by: Other (PHOTOS SUBMITTED ) Nursing and Triage Documentation Reviewed and Agree: Yes Does patient meet sepsis criteria?: No If yes, has appropriate treatment been initiated?: No System Inflammatory Response Syndrome: Not Applicable Sepsis Protocol: For patient's 13 years and over: Temp is 96.8 and below OR 101 and greater Pulse >90 BPM Resp >20/minute Acutely Altered Mental Status Are patient's symptoms suggestive of a new infection, such as: -Pneumonia -Skin, Soft Tissue -Endocarditis -UTI -Bone, Joint Infection -Implantable Device -Acute Abdominal Infection -Wound Infection -Meningitis -Blood Stream Catheter Infection -Unknown EENT Complaint Exam - Dental/Oral Complaint/Exam Mechanism of Injury: No known trauma Onset/Duration: 1 WEEK Symptoms Are: Still present Timing: Intermittent Initial Severity: Moderate Current Severity: Moderate Character: Reports: Aching Aggravating: Reports: None, Heat, Cold Alleviating: Reports: None Related History: Reports: Similar episode Cardiac Risk Factors: Reports: None Facial Swelling Present: No Bleeding Present: No Oropharynx Findings: Absent: Clots, Active bleeding Septal Hematoma: No Foreign Body Present: No Dysphagia Present: No Drooling Present: No Asymmetrical Tonsillar Swelling Present: No Uvula Midline: Yes Fanta-tonsillar Fluctuence: No Trismus Present: No Palatal Petechiae Present: No Scarlatinaform Rash Present: No Lesions: Absent: Lip, Gums, Tongue, Buccal Mucosa, Pharynx Exanthem: Absent: Lip, Gums, Tongue, Buccal Mucosa, Pharynx Vesicles: Absent: Lip, Gums, Tongue, Buccal Mucosa, Pharynx Teeth Picture: 1 - DECAY Differential Diagnoses: Dental Caries, Fractured Tooth Review of Systems - Review Of Systems Constitutional: Reports: No symptoms Eyes: Reports: No symptoms Ears, Nose, Mouth, Throat: Reports: No symptoms Respiratory: Reports: No symptoms Cardiac: Reports: No symptoms GI: Reports: No symptoms : Reports: No symptoms Musculoskeletal: Reports: No symptoms Skin: Reports: No symptoms Neurological: Reports: No symptoms Endocrine: Reports: No symptoms Hematologic/Lymphatic: Reports: No symptoms All Other Systems: Reviewed and Negative Past Medical History - Past Medical History Previously Healthy: No Endocrine: Reports: None Cardiovascular: Reports: Hypertension Respiratory: Reports: None Hematological: Reports: None Gastrointestinal: Reports: None, Pancreatitis (?) Genitourinary: Reports: None Neuro/Psych: Reports: Anxiety, Depression Musculoskeletal: Reports: Back Pain (buldging disk. ), Joint Pain Cancer: Reports: None Last Menstrual Period: none Other Pertinent Past Medical History: Obesity - Surgical History General Surgical History: Reports: Hysterectomy, , Appendectomy, Cholecystectomy (note recent MRI shows small stone or polyp in bile duct(MRI of back showed adrenal left nodules and polyp in ampula vater). Denies: Back Surgery - Family History Family History: Reports: Heart (father in his 60s past hx cabg diabetes copd; MGF with CHF ), Hypertension (mother with HT and angina), Cancer - Social History Smoking Status: Former smoker Hx Substance Use: No Alcohol Screening: None - Immunizations Influenza Vaccine within 12 Months: No Pneumococcal Vaccine up to Date: No Physical Exam - Physical Exam Appearance: Well-appearing, No pain distress, Well-nourished Eyes: MIKALA, EOMI, Conjunctiva clear ENT: Ears normal, Nose normal, Oropharynx normal Respiratory: Airway patent, Breath sounds clear, Breath sounds equal, Respirations nonlabored Cardiovascular: RRR, Pulses normal, No rub, No murmur GI/: Soft, Nontender, No masses, Bowel sounds normal, No Organomegaly Musculoskeletal: Normal strength, ROM intact, No edema, No calf tenderness Skin: Warm, Dry, Normal color Neurological: Sensation intact, Motor intact, Reflexes intact, Cranial nerves intact, Alert, Oriented Psychiatric: Affect appropriate, Mood appropriate Critical Care Note - Critical Care Note Total Time (mins): 0 Course - Course Vital Signs: Temp Pulse Resp BP Pulse Ox 05/10/18 17:37 97.6 F 98 H 18 136/85 97 Departure - Departure Time of Disposition: 17:53 (SEE PHOTOS SEEN AT ALL TIMES WITH CLARK) Disposition: HOME SELF-CARE Discharge Problem: Toothache Instructions: Toothache (ED) Condition: Good Pt referred to PMD for follow-up: Yes IPMP verified?: No Additional Instructions: Please call your Family Physician as soon as possible to schedule a follow-up appointment. Prescriptions: Hydrocodone/Acetaminophen [[place] 10-325 Tablet] 1 each PO Q8HR #10 tablet Allergies/Adverse Reactions: Allergies aspirin Adverse Reaction (Verified 05/10/18 17:38) Penicillins Adverse Reaction (Verified 05/10/18 17:38) Home Medications: Ambulatory Orders Citalopram Hydrobromide [Celexa] 40 mg PO BEDTIME 04/26/17 [place] Carbonate 300 mg PO BEDTIME 04/26/17 Trazodone HCl 50 mg PO BEDTIME 04/26/17 Hydrocodone/Acetaminophen [[place] 10-325 Tablet] 1 each PO Q8HR #10 tablet
== END 2018-05-10 17:58 | disposition home or self-care (01) ==
LOC: ED 17:36
DX: K08.89 Other specified disorders of teeth and supporting structures (principal); K02.7 Dental root caries
CPT/HCPCS: 99282

== ENCOUNTER 2018-06-17 16:34 | Emergency (ER) ==
[2018-06-17 16:41] VITALS: BP 139/86; TEMP 98.4; BMI 42.5
--- NOTE | 2018-06-17 17:16 | ED.PDOC ---
General ED Provider: Dr. YASH SEPULVEDA Chief Complaint: Abdominal Pain Stated Complaint: Acute abdominal Pain. Severe/ localized across lower abdomen. Assoc Nausea, Diarrrhea. Previous colonoscopy 1 year Time Seen by Physician: 16:40 Mode of Arrival: Walk-In Information Source: Patient Exam Limitations: Clinical condition Primary Care Provider: STEFANIE NARAYANAN Nursing and Triage Documentation Reviewed and Agree: Yes Does patient meet sepsis criteria?: No System Inflammatory Response Syndrome: Not Applicable Sepsis Protocol: For patient's 13 years and over: Temp is 96.8 and below OR 101 and greater Pulse >90 BPM Resp >20/minute Acutely Altered Mental Status Are patient's symptoms suggestive of a new infection, such as: -Pneumonia -Skin, Soft Tissue -Endocarditis -UTI -Bone, Joint Infection -Implantable Device -Acute Abdominal Infection -Wound Infection -Meningitis -Blood Stream Catheter Infection -Unknown GI Complaint Exam - Abdominal Pain Complaint/Exam Onset: Gradual Symptoms Are: Worse Timing: Constant Initial Severity: Moderate Current Severity: Severe Location of Pain: Diffuse Radiates To: Reports: Flank, LLQ Character: Reports: Aching, Throbbing, Cramping, Colicky Aggravating: Reports: Movement Alleviating: Reports: None Associated Signs and Symptoms: Denies: Diaphoresis, Fever, Cough, Chest pain, Dizziness, Back pain, Constipation, Blood in stool, Dysuria, Urinary frequency, Decreased urine output, Decreased appetite, Vaginal bleeding, Vaginal discharge , Nausea, Vomiting, Diarrhea, Sore throat, Decreased activity AAA Risk Factors: Reports: None Cardiac Risk Factors: Reports: None Ectopic Risk Factors: Reports: None Abdominal Findings: Present: Rebound tenderness, Peritoneal signs, CVA Tenderness Review of Systems - Review Of Systems Constitutional: Reports: No symptoms Eyes: Reports: No symptoms Ears, Nose, Mouth, Throat: Reports: No symptoms Respiratory: Reports: No symptoms Cardiac: Reports: No symptoms GI: Reports: No symptoms, Abdominal pain, Diarrhea, Poor appetite, Poor fluid intake : Reports: No symptoms Musculoskeletal: Reports: No symptoms Skin: Reports: No symptoms Neurological: Reports: No symptoms Endocrine: Reports: No symptoms Hematologic/Lymphatic: Reports: No symptoms All Other Systems: Reviewed and Negative Past Medical History - Past Medical History Previously Healthy: Yes Endocrine: Reports: None Cardiovascular: Reports: Hypertension Respiratory: Reports: None Hematological: Reports: None Gastrointestinal: Reports: None, Pancreatitis (?) Genitourinary: Reports: None Neuro/Psych: Reports: Anxiety, Depression Musculoskeletal: Reports: Back Pain (buldging disk. ), Joint Pain Cancer: Reports: None Last Menstrual Period: hysterectomy Other Pertinent Past Medical History: Obesity - Surgical History General Surgical History: Reports: Hysterectomy, , Appendectomy, Cholecystectomy (note recent MRI shows small stone or polyp in bile duct(MRI of back showed adrenal left nodules and polyp in ampula vater). Denies: Back Surgery - Family History Family History: Reports: Heart (father in his 60s past hx cabg diabetes copd; MGF with CHF ), Hypertension (mother with HT and angina), Cancer - Social History Smoking Status: Former smoker Hx Substance Use: No Alcohol Screening: None - Immunizations Influenza Vaccine within 12 Months: No Pneumococcal Vaccine up to Date: No Physical Exam - Physical Exam Appearance: Ill-appearing, Well-nourished, Obese Ill-appearing: Severe Pain Distress: Severe Eyes: [place], EOMI, Conjunctiva clear ENT: Ears normal, Nose normal, Oropharynx normal Neck: Supple Respiratory: Airway patent, Breath sounds clear, Breath sounds equal, Respirations nonlabored Cardiovascular: RRR, Pulses normal, No rub, No murmur GI/: Soft, No masses, Bowel sounds normal, No Organomegaly, Tender, Bowel sounds hypoactive Musculoskeletal: Normal strength, ROM intact, No edema, No calf tenderness Skin: Warm, Dry, Normal color Neurological: Sensation intact, Motor intact, Reflexes intact, Cranial nerves intact, Alert, Oriented Psychiatric: Affect appropriate, Mood appropriate Interpretation - Radiology Interpretation Radiology Interpretation By: Radiologist Radiology Results: No acute changes Exam Interpreted: CT Scan Re-Evaluation - Re-Evaluation Time of Re-Evaluation: 19:00 Status: Improved Vital Signs Stable: Yes Appearance: NAD Lungs: Clear Skin: Warm and Dry Critical Care Note - Critical Care Note Total Time (mins): 60 Course - Course Hematology/Chemistry: 06/17/18 18:59 06/17/18 17:30 Orders, Labs, Meds: Lab Review 06/17/18 06/17/18 06/17/18 17:30 17:30 18:59 WBC 7.59 RBC 4.41 Hgb 12.8 Hct 39.4 MCV 89.3 MCH 29.0 MCHC 32.5 RDW Coeff of [place] 12.6 Plt Count 243 Immature Gran % (Auto) 0.1 Neut % (Auto) 55.0 Lymph % (Auto) 32.8 [place] % (Auto) 6.7 Eos % (Auto) 4.9 Baso % (Auto) 0.5 Immature Gran # (Auto) 0.0 Neut # (Auto) 4.2 Lymph # (Auto) 2.5 [place] # (Auto) 0.5 Eos # (Auto) 0.4 Baso # (Auto) 0.0 ESR 10 Sodium 138.2 Potassium 4.34 Chloride 103.7 Carbon Dioxide 31.0 H Anion Gap 7.84 BUN 10.9 Creatinine 0.86 Estimated GFR (MDRD) 71.00 BUN/Creatinine Ratio 12.67 Glucose 93.2 Calcium 9.21 Total Bilirubin 0.31 AST 29.7 ALT 26.0 Alkaline Phosphatase 59.6 Total Protein 7.09 Albumin 4.27 Globulin 2.82 Albumin/Globulin Ratio 1.51 Lipase 80.7 Orders Category Date Time Status BLOOD CULTURE (ED ONLY) Stat LAB 06/17/18 17:30 Received CBC W/ AUTO DIFF DAILY@0600 LAB 06/18/18 06:00 Ordered CBC W/ AUTO DIFF DAILY@0600 LAB 06/19/18 06:00 Ordered CBC W/ AUTO DIFF Stat LAB 06/17/18 18:59 Completed CMP [COMPREHENSIVE METABOLIC PANEL] Stat LAB 06/17/18 17:30 Completed ESR Stat LAB 06/17/18 17:30 Completed LIPASE Stat LAB 06/17/18 17:30 Completed 0.9 % Sodium Chloride [Saline Flush] MEDS 06/17/18 17:18 Ordered 1 syr IVF PRN PRN Hydromorphone HCl [Dilaudid 1 mg/ml Syringe] MEDS 06/17/18 17:21 Discontinued 2 mg IVP ONCE STA Ondansetron HCl/Pf [Zofran 4 mg/2 ml] MEDS 06/17/18 17:19 Discontinued 4 mg IVP ONCE STA Sodium Chloride 0.9% [Sodium Chloride] 1,000 ml MEDS 06/17/18 17:18 Discontinued IV BOLUS CHEST, 2 VIEWS PA & LAT Stat RADS 06/17/18 17:[address] ABDOMEN/PELVIS WO CONTRAST Stat RADS 06/17/18 17:07 Completed Medications Generic Name Dose Route Start Last Admin Trade Name Freq PRN Reason Stop Dose Admin Sodium Chloride 1 syr 06/17/18 17:18 06/17/18 17:33 Saline Flush IVF 1 syr PRN PRN Administration To flush IV Discontinued Medications Generic Name Dose Route Start Last Admin Trade Name Miracle PRN Reason Stop Dose Admin Hydromorphone HCl 2 mg 06/17/18 17:21 06/17/18 17:40 Dilaudid 1 Mg/Ml Syringe IVP 06/17/18 17:22 2 mg ONCE STA Administration Sodium Chloride 1,000 mls @ 500 mls/hr 06/17/18 17:18 06/17/18 17:34 Sodium Chloride IV 06/17/18 19:17 500 mls/hr BOLUS STA Administration Ondansetron HCl 4 mg 06/17/18 17:19 06/17/18 17:35 Zofran 4 Mg/2 Ml IVP 06/17/18 17:20 4 mg ONCE STA Administration Vital Signs: Temp Pulse Resp BP Pulse Ox 06/17/18 16:34 98.4 F 83 20 139/86 95 Departure - Departure Time of Disposition: 19:15 Disposition: HOME SELF-CARE Discharge Problem: Acute diarrhea, Spastic colitis Instructions: Acute Diarrhea (ED), Irritable Bowel Syndrome (ED) Condition: Good Pt referred to PMD for follow-up: Yes IPMP verified?: No Additional Instructions: clear liquids for 12 hrs then Diet as tolerated Follow up as needed with PCP Allergies/Adverse Reactions: Allergies aspirin Adverse Reaction (Verified 06/17/18 16:43) Penicillins Adverse Reaction (Verified 06/17/18 16:43) Home Medications: Ambulatory Orders Citalopram Hydrobromide [Celexa] 20 mg PO BEDTIME 04/26/17 [place] Carbonate 300 mg PO TID 04/26/17 Trazodone HCl 50 mg PO BEDTIME 04/26/17 Cholecalciferol (Vitamin D3) [Vitamin D3] 5,000 unit PO WEEKLY 06/17/18 Cyanocobalamin (Vitamin B-12) [Vitamin B-12] 500 mcg PO DAILY 06/17/18 Dicyclomine HCl [Bentyl] 1 - 2 mg PO QID PRN #40 capsule 06/17/18 Hydroxyzine Pamoate 50 mg PO Q8HR 06/17/18 Disposition Discussed With: Patient, Family
[2018-06-17] MEDS ORDERED: SODIUM CHLORIDE 1,000 ML IV STA (17:18)
[2018-06-17] MEDS ORDERED: ZOFRAN 4 MG/2 ML IVP STA (17:19)
[2018-06-17] MEDS ORDERED: DILAUDID 1 MG/ML SYRINGE IVP STA (17:21)
--- NOTE | 2018-06-17 18:06 | CT ---
EXAM: CT abdomen and pelvis without contrast HISTORY: Lower abdominal pain, onset 3 days ago TECHNIQUE: Multi-slice transaxial helical with coronal and sagittal reformed images COMPARISON: CT abdomen/pelvis from 07/16/2015 FINDINGS: The lung bases are free of acute airspace or interstitial opacities. The heart size is nor mal. There are no pericardial or pleural effusions. A calcified granuloma is noted in the left lower lobe. The hepatic attenuation is normal relative to the spleen. The spleen has normal size with a few calc ified granulomas. The gallbladder surgically absent without biliary dilatation. The pancreas has no rmal attenuation. The adrenal glands are normal. The kidneys have normal position and attenuation. Ureters have normal caliber. The nonopacified rogelio dder is normal. The uterus is surgically absent and there are no adnexal masses. The intestines have normal caliber without evidence of obstruction or acute inflammation. There is n o CT evidence of diverticulosis or diverticulitis. The appendix is normal. No lymphadenopathy or as cites. The abdominal aorta is atherosclerotic with normal caliber. The bones are free of suspicious osteolytic or osteoblastic lesions. IMPRESSION: 1. Nonobstructive intestinal gas pattern. Normal appendix. No CT evidence of diverticulosis or div erticulitis. 2. Previous cholecystectomy without dilatation. 3. Normal renal collecting systems. 4. No lymphadenopathy or ascites.
--- NOTE | 2018-06-17 18:06 | DI ---
EXAM: Chest PA and lateral HISTORY: Acute abdominal pain FINDINGS: A calcified granuloma in the right upper lobe is unchanged since 05/01/2018. The lungs are free of acute airspace or interstitial opacities. The aorta is normal in caliber. The heart size is normal. The bones are intact. No pneumothorax or pleural effusions are detected. IMPRESSION: No acute cardiopulmonary disease. Old granulomas disease.
== END 2018-06-17 19:45 | disposition home or self-care (01) ==
LOC: ED 16:34
DX: K58.0 Irritable bowel syndrome with diarrhea (principal); Z79.899 Other long term (current) drug therapy; I10 Essential (primary) hypertension; R10.30 Lower abdominal pain, unspecified
CPT/HCPCS: 36415; 80053; 83690; 85025; 85651; 87040; 96361; 96374; 96375; 99283